=== PATIENT | female | born 1960 | race Hispanic/Latino ===

== ENCOUNTER → 2018-02-24 | Day surgery (SDC) | payer OTHER ==
[~2018-02-24] MED LIST: ASPIR 8181 MG PO; BALANCED SALT SOLN (OPTH) 15 ML BTL IO ONE; CIPRO500 MG PO; FENTANYL CITRATE/PF 100MCG/2 ML INJ ONE; FLAGYL250 MG PO; FLAGYL500 MG PO; GELATIN SPONGE 12-7MM ONE; HYDROCHLOROTHIA25 MG PO; IBUPROFEN PO; LEVAQUIN500 MG PO; LEVOTHYROXINE75 MCG PO; LIDOCAINE 2% /EPINEPHRINE 20 ML SDV INJ ONE; MIDAZOLAM HCL 2 MG/2 ML VIAL ONE; NEOMYCIN/POLYMYXIN/DEX (OPTH) 3.5 GM TUBE ONE; NORCO 5-325 TA1 EACH PO; PHENTERMINE H37.5 MG PO; POVIDONE IODINE 5% (OPTH) 30 ML BTL ONE; PROPOFOL IV EMULSION 10 MG/ML 20 ML VIAL ONE; SINGULAIR10 MG PO; SYMBICORT 16010.2 GM INH; VENTOLIN HFA18 GM IH; VENTOLIN HFA18 GM PO; ZYRTEC10 MG PO
--- OUTSIDE RECORDS SUMMARY | 2018-02-24 11:55 | XMS REPORT | Clinical Summary ---
Author Author [facility] Address Unknown Phone Unavailable Care Team Providers Care Manager Crisis Name Role Phone Asked, Pcp PCP Unavailable Allergies No Known Allergies Current Medications Prescription Sig. Disp. Refills Start End Date Status Date albuterol (ACCUNEB) 1.25 USE ONE (1) AMPULE IN 1 10/23/20 Active mg/3 mL nebulizer NEBULIZER THREE TIMES A 17 solution DAY DIRECTED. montelukast (SINGULAIR) 09/15/20 Active 10 mg tablet 17 SYMBICORT 160-4.5 10/07/20 Active mcg/actuation inhaler 17 VENTOLIN HFA 90 08/23/20 Active mcg/actuation inhaler 17 CHERATUSSIN AC 10-100 TAKE ONE (1) OR TWO (2) 0 10/23/20 Active mg/5 mL liquid TEASPOONFUL(S) BY MOUTH 17 EVERY FOUR TO SIX HOURS NEEDED. loratadine (CLARITIN) 10 Take 10 mg by mouth Active mg tablet daily. levothyroxine (SYNTHROID, Take 1 tablet (50 mcg 30 tablet 2 12/23/19 12/23/19 Active LEVOXYL) 50 mcg tablet total) by mouth every 18 19 morning. levothyroxine (SYNTHROID, 10/16/20 12/23/19 Discontin LEVOXYL) 75 mcg tablet 17 18 ued brompheniramine-pseudoeph 09/24/20 12/01/19 Discontin -DM 2-30-10 mg/5 mL syrup 17 18 ued amoxicillin-pot TAKE ONE (1) TABLET(S) BY 0 10/23/20 12/01/19 Discontin clavulanate (AUGMENTIN) MOUTH EVERY TWELVE HOURS 17 18 ued 875-125 mg per tablet FOR 10 DAYS. methylPREDNISolone See Admin Instructions. 0 10/23/20 12/01/19 Discontin (MEDROL DOSEPAK) 4 mg 17 18 ued tablet aspirin (ECOTRIN) 325 MG Take 1 tablet (325 mg 30 tablet 0 11/05/19 12/05/19 enteric coated tablet total) by mouth daily for 18 18 30 days. atorvastatin (LIPITOR) 10 Take 1 tablet (10 mg 30 tablet 0 11/04/19 12/04/19 MG tablet total) by mouth nightly 18 18 for 30 days. cetirizine (ZyrTEC) 5 MG Take 1 tablet (5 mg 30 tablet 0 11/05/19 tablet total) by mouth daily for 18 18 30 days. enoxaparin (LOVENOX) 40 Inject 0.4 mL (40 mg 12 mL 0 11/04/19 Discontin mg/0.4 mL syringe total) under the skin 18 18 ued daily for 30 days. gabapentin (NEURONTIN) Take 1 capsule (100 mg 30 capsule 0 11/04/19 12/04/19 Discontin 100 mg capsule total) by mouth nightly 18 18 ued for 30 days. lidocaine (LIDODERM) 5 % Place 1 patch on the skin 30 patch 0 12/01/19 Discontin daily for 30 days. Remove 18 18 ued & Discard patch within 12 hours or as directed by MD urbina Take 1 tablet by mouth 2 11/04/19 12/04/19 Discontin sodium (SENOKOT-S) 8.6-50 (two) times a day as 18 18 ued mg per tablet needed for constipation for up to 30 days. Active Problems Problem Noted Date CVA (cerebral vascular accident) 10/30/2017 Diplopia 10/29/2017 Encounters Date Type Specialty Care Team Description 02/04/2018 Telephone Family Faye Francis 02/03/2018 Telephone Family Faye Francis 02/02/2018 Office Visit Family Valery Paula MD Acquired hypothyroidism (Primary Dx); Preoperative examination 12/23/2017 Refill Family Hanh Miller MA 12/12/2017 Telephone Family Hanh Miller MA 12/05/2017 Orders Only Family Valery Paula MD 12/04/2017 Office Visit Family Valery Paula MD Well woman exam with routine gynecological exam (Primary Dx) 12/04/2017 Orders Only Family Medicine Valery Pickard MD 12/01/2017 Office Visit Neurology Lorena Pierre MD Fluid retention (Primary Dx); Double vision 10/28/2017 [facility] Surgery sd Rina Villalba Diplopia ( Primary Dx) - Encounter MD Leo 11/04/2017 Inder Dougherty, Jose Palomino MD 10/28/2017 Procedure Pass General Surgery after 02/23/2017 Family History Medical History Relation Name Comments Stroke Father Relation Name Status Comments Brother Alive Father Alive Maternal Grandfather Maternal Grandmother Mother Alive Paternal Grandfather Paternal Grandmother Sister Alive Social History Tobacco Use Types Packs/Day Years Used Date Never Smoker Smokeless Tobacco: Never Used Alcohol Use Drinks/Week oz/Week Comments No Sex Assigned at Date Recorded Not on file Last Filed Vital Signs Vital Sign Reading Time Taken Blood Pressure 134/83 02/02/2018 9:37 AM CDT Pulse 68 02/02/2018 9:37 AM CDT Temperature 36.4 C (97.6 F) 02/02/2018 9:37 AM CDT Respiratory Rate 18 02/02/2018 9:37 AM CDT Oxygen Saturation 100% 02/02/2018 9:37 AM CDT Inhaled Oxygen - - Concentration Weight 71.7 kg (158 lb) 02/02/2018 9:37 AM CDT Height 154.9 cm (5' 1") 02/02/2018 9:37 AM CDT Body Mass Index 29.85 02/02/2018 9:37 AM CDT Plan of Treatment Health Maintenance Due Date Last Done Comments PAP SMEAR 1980 COLONOSCOPY 2009 MAMMOGRAM 2009 SHINGRIX VACCINE (#1) 2009 INFLUENZA VACCINE 05/27/2018 06/27/2017 Procedures Procedure Name Priority Date/Time Associated Diagnosis Comments ECHOCARDIOGRAM 2D Routine 10/29/2017 Results for this COMPLETE W MMODE SPECTRAL 5:30 PM PERFORMING ARTIST procedure are in the COLOR DOPPLER (98437) results section. after 02/23/2017 Results * CBC with platelet and differential (02/02/2018 10:52 AM) Only the most recent of 3 results within the time period is included. Component Value Ref Range WBC 6.6 3.8 - 10.8 Thousand/uL RBC 4.87 3.80 - 5.10 Million/uL HGB 13.8 11.7 - 15.5 g/dL HCT 42.8 35.0 - 45.0 % MCV 87.9 80.0 - 100.0 fL MCH 28.3 27.0 - 33.0 pg MCHC 32.2 32.0 - 36.0 g/dL RDW 12.3 11.0 - 15.0 % Platelet count 361 140 - 400 Thousand/uL MPV 9.6 7.5 - 12.5 fL Neutrophils, absolute 4,356 1,500 - 7,800 cells/uL Lymphocytes, absolute 1,591 850 - 3,900 cells/uL Monocytes, absolute 462 200 - 950 cells/uL Eosinophils, absolute 119 15 - 500 cells/uL Basophils, absolute 73 0 - 200 cells/uL Neutrophils 66 % Lymphocytes 24.1 % Monocytes 7.0 % Eosinophils 1.8 % Basophils + RC 1.1 % Specimen Performing Laboratory [facility] Narrative FASTING:YES FASTING: YES * SUREPATH PAP RFX HPV mRNA E6/E7 (12/05/2017 4:03 PM) Component Value Ref Range Clinical information Comment: Information not provided Date of last menstrual NONE GIVEN period Prev. pap: NONE GIVEN Prev. bx: NONE GIVEN Source None given Statement of adequacy Comment: Satisfactory for evaluation. Endocervical/transformation zone component present. Interpretation/result: Comment: Negative for intraepithelial lesion or malignancy. Managing Principal Comment: CINTHIA STOVER (ASCP) CT screening location: [place] [address] [address] , [place] [address] NO COLLECTION DATE RECEIVED. WE HAVE USED THE DATE THE SPECIMEN WAS RECEIVED BY THIS LABORATORY THE COLLECTION DATE. IF THIS IS INCORRECT, PLEASE CONTACT CLIENT SERVICES. PHONE NUMBER: [phone] Specimen Performing Laboratory [facility] Narrative FASTING: UNKNOWN * URINALYSIS, COMPLETE, WITH REFLEX TO CULTURE (12/04/2017 2:41 PM) Component Value Ref Range Color, UA YELLOW YELLOW Appearance CLEAR CLEAR Specific gravity, urine 1.014 1.001 - 1.035 pH, urine 7.0 5.0 - 8.0 Glucose, urine NEGATIVE NEGATIVE Bilirubin, UA NEGATIVE NEGATIVE Ketones, UA NEGATIVE NEGATIVE Occult blood, urine NEGATIVE NEGATIVE Protein, UA NEGATIVE NEGATIVE Nitrite, UA NEGATIVE NEGATIVE Leukocyte esterase, UA 2+ (A) NEGATIVE WBC, UA 0-5 < OR=5 /HPF RBC, UA NONE SEEN < OR=2 /HPF Squamous epithelial 0-5 < OR=5 /HPF cells, UA Bacteria, UA NONE SEEN NONE SEEN /HPF Amorphous crystals FEW NONE OR FEW /HPF Hyaline casts, UA NONE SEEN NONE SEEN /LPF Reflex CULTURE INDICATED - RESULTS TO FOLLOW Specimen Performing Laboratory [facility] Narrative FASTING:YES FASTING: YES * Vitamin D 25 hydroxy level (12/04/2017 2:41 PM) Component Value Ref Range Vitamin D, 25-hydroxy 23 (L) 30 - 100 ng/mL Comment: Vitamin D Status 25-OH Vitamin D: Deficiency: <20 ng/mL Insufficiency: 20 - 29 ng/mL Optimal: > or=30 ng/mL For 25-OH Vitamin D testing on patients on D2-supplementation and patients for whom quantitation of D2 and D3 fractions is required, the QuestAssureD(TM) 25-OH VIT D, (D2,D3), LC/MS/MS is recommended: order code 85761 (patients >2yrs). For more information on this test, go to: http://education.SensingStrip/faq/HKU211 (This link is being provided for informational/educational purposes only.) Specimen Performing Laboratory [facility] Narrative FASTING:YES FASTING: YES * Urine culture (12/04/2017 2:41 PM) Component Value Ref Range Urine culture SEE NOTE Comment: CULTURE, URINE, ROUTINE MICRO NUMBER: [id number] TEST STATUS: FINAL SPECIMEN SOURCE: URINE SPECIMEN QUALITY: ADEQUATE RESULT: Multiple organisms present, each less than 10,000 CFU/mL. These organisms, commonly found on external and internal genitalia, are considered to be colonizers. No further testing performed. Specimen Performing Laboratory [facility] Narrative FASTING:YES FASTING: YES * C-reactive protein (12/04/2017 2:41 PM) Only the most recent of 2 results within the time period is included. Component Value Ref Range CRP 2.0 <8.0 mg/L Specimen Performing Laboratory [facility] Narrative FASTING:YES FASTING: YES * Thyroid stimulating hormone (12/04/2017 2:41 PM) Only the most recent of 2 results within the time period is included. Component Value Ref Range TSH 0.86 0.40 - 4.50 mIU/L Specimen Performing Laboratory [facility] Narrative FASTING:YES FASTING: YES * T4, free (12/04/2017 2:41 PM) Only the most recent of 2 results within the time period is included. Component Value Ref Range T4, free 1.4 0.8 - 1.8 ng/dL Specimen Performing Laboratory [facility] Narrative FASTING:YES FASTING: YES * Hemoglobin A1c (12/04/2017 2:41 PM) Component Value Ref Range Hemoglobin A1C 5.5 <5.7 % of total Hgb Comment: For the purpose of screening for the presence of diabetes: <5.7% Consistent with the absence of diabetes 5.7-6.4% Consistent with increased risk for diabetes (prediabetes) > or=6.5% Consistent with diabetes This assay result is consistent with a decreased risk of diabetes. Currently, no consensus exists regarding use of hemoglobin A1c for diagnosis of diabetes in children. According to [place] Diabetes Association (ADA) guidelines, hemoglobin A1c <7.0% represents optimal control in non- diabetic patients. Different metrics may apply to specific patient populations. Standards of Medical Care in Diabetes(ADA). Specimen Performing Laboratory [facility] Narrative FASTING:YES FASTING: YES * Vitamin B12 level (12/04/2017 2:41 PM) Only the most recent of 2 results within the time period is included. Component Value Ref Range Vitamin B12 635 200 - 1,100 pg/mL Specimen Performing Laboratory [facility] Narrative FASTING:YES FASTING: YES * Lipid panel (12/04/2017 2:41 PM) Only the most recent of 2 results within the time period is included. Component Value Ref Range Cholesterol, total 180 <200 mg/dL HDL cholesterol 116 >50 mg/dL Triglycerides 38 <150 mg/dL LDL cholesterol 53 mg/dL (calc) calculated Comment: Reference range: <100 Desirable range <100 mg/dL for patients with CHD or diabetes and <70 mg/dL for diabetic patients with known heart disease. LDL-C is now calculated using the Luis-Francois calculation, which is a validated novel method providing better accuracy than the Friedewald equation in the estimation of LDL-C. Luis SS et al. BRO. 2013;310(19): 3538-2934 (http://education.Cluey.Intacct/faq/LAZ295) Cholesterol/HDL ratio 1.6 <5.0 (calc) Non-HDL cholesterol 64 <130 mg/dL (calc) Comment: For patients with diabetes plus 1 major ASCVD risk factor, treating to a non-HDL-C goal of <100 mg/dL (LDL-C of <70 mg/dL) is considered a therapeutic option. Specimen Performing Laboratory [facility] Narrative FASTING:YES FASTING: YES * Comprehensive metabolic panel (12/04/2017 2:41 PM) Only the most recent of 2 results within the time period is included. Component Value Ref Range Glucose 86 65 - 99 mg/dL Comment: Fasting reference interval BUN, whole blood 17 7 - 25 mg/dL Creatinine 0.67 0.50 - 1.05 mg/dL Comment: For patients >49 years of age, the reference limit for Creatinine is approximately 13% higher for people identified as -Pakistani. EGFR Non-Afr. Pakistani 97 > OR=60 mL/min/1.73m2 EGFR 112 > OR=60 mL/min/1.73m2 BUN/creatinine ratio NOT APPLICABLE 6 - 22 (calc) Sodium 141 135 - 146 mmol/L Potassium 4.4 3.5 - 5.3 mmol/L Chloride 104 98 - 110 mmol/L CO2 28 20 - 31 mmol/L Calcium 9.8 8.6 - 10.4 mg/dL Protein 6.6 6.1 - 8.1 g/dL Albumin, S 4.2 3.6 - 5.1 g/dL Globulin, total 2.4 1.9 - 3.7 g/dL (calc) Albumin/globulin ratio 1.8 1.0 - 2.5 (calc) Total bilirubin 0.7 0.2 - 1.2 mg/dL Alkaline phosphatase 89 33 - 130 U/L AST 17 10 - 35 U/L ALT 16 6 - 29 U/L Specimen Performing Laboratory [facility] Narrative FASTING:YES FASTING: YES * Acetylcholine receptor binding Ab (11/02/2017 2:40 PM) Component Value Ref Range Acetylcholine receptor 0.0 0.0 - 0.4 nmol/L binding Ab Comment: INTERPRETIVE INFORMATION: Acetylcholine Binding Ab Negative ....... 0.0 - 0.4 nmol/L Positive ....... 0.5 nmol/L or greater Approximately 85-90 percent of patients with myasthenia gravis (MG) express antibodies to the acetylcholine receptor (AChR), which can be divided into binding, blocking, and modulating antibodies. Binding antibody can activate complement and lead to loss of AChR. Blocking antibody may impair binding of acetylcholine to the receptor, leading to poor muscle contraction. Modulating antibody causes receptor endocytosis resulting in loss of AChR expression, which correlates most closely with clinical severity of disease. Approximately 10-15 percent of individuals with confirmed myasthenia gravis have no measurable binding, blocking, or modulating antibodies. Test developed and characteristics determined by [employer] See Compliance Statement B: [employer] Performed by [facility] [facility], [address] [place] [address] [email or web address], Thiago Quinn MD - Lab. Director Specimen Performing Laboratory Serum [facility] [address] [place] [address] * Sedimentation rate (11/02/2017 2:40 PM) Component Value Ref Range Sedimentation rate 10 0 - 20 mm/hr Specimen Performing Laboratory Blood [facility] DEPARTMENT OF PATHOLOGY AND GENOMIC MEDICINE [address] [address] * Echocardiogram complete w contrast and 3D if needed (10/29/2017 5:30 PM) Component Value Ref Range AoV Area, Vmax 2.35 cm2 AoV Area, VTI 2.47 cm2 AoV Mean PG 5.66 mmHg AoV Peak PG 11.70 mmHg AoV Vmax 1.71 m/s AoV VTI 0.34 m IVS,d 0.74 0.6 - 1.2 cm LV,d 4.94 cm LV EF,A2C 59.63 % LV EF,A4C 63.14 % LV EF,BP 61.08 % Michi Lester,d A2C 7.15 cm Michi Lester,d A4C 7.91 cm Michi Lester,s A2C 6.15 cm Michi Lester,s A4C 5.41 cm LV,s 3.33 cm LV SV,A2C 40.88 % LV SV,A4C 32.77 % LV Vol,d A2C 68.56 mL LV Vol,d A4C 51.90 ml LV Vol,d BP 62.64 ml LV Vol,s A2C 27.68 mL LV Vol,s A4C 19.13 ml LV Vol,s BP 24.38 nl LVOT Diam,S 2.01 cm LVOT Vmax 1.27 m/s LVOT VTI 0.26 m LVPWD,d 0.79 cm RVSP (TR) 33.80 mmHg TR Vpeak 2.68 mm/s AR Press Half Time 608.71 ms MV E A ratio 0.64 mmHg TR pk grad 28.80 mmHg E wave decelartion time 232.27 msec MV Peak A Wes 0.86 m/s MV valve area p 1/2 4.12 cm2 method MV Peak E Wes 0.55 m/s MV stenosis pressure 1/2 53.37 ms time AV LVOT peak gradient 6.43 mmHg RVSP 33.80 mmHg LV SYS VOL 45.18 ml LV PISANO VOL 114.95 ml LV SV Teich 2D 69.77 ml LVOT SI 48.05 ml/m2 AoV Cusp sep 1.88 AoV Vmn 1.12 IVS s 2D 0.89 AR slope 1.83 Ar Vmax 3.78 LA Ao Ratio Mmode 1.33 LVOT Vmn 0.81 Pt Size 157.48 Pt Wt 71.21 PV AT 76.12 msec LVOT mean grad 2.93 mmHg AR DT 2,070.51 msec AR pk grad 55.38 mmHg LVPW s PLAX 1.08 cm MV Decel slope 2.35 m/s2 LA Vol MOD A4C 26.77 ml Velocity Ratio (V1/V2) 0.74 m/s EF 60.70 % E/A ratio 0.64 LVOT area 3.17 cm2 RA pressure 5.00 mmHg LA diam s 3.70 cm Aortic Root 2.80 AR maxPG 56.25 D E excurs 1.50 E f slope 0.06 E prime lat 0.13 E rina sept 0.13 PV acc T slope 12.20 Specimen Performing Laboratory [facility] [address] [place] [address] Narrative The left ventricle chamber size is normal. Left Ventricular ejection fraction is 55 - 60%. Right ventricular size is normal. Left atrium size is mildly dilated. No pericardial effusion Spectral Doppler shows impaired relaxation pattern of left ventricular diastolic filling. Normal pulmonary artery systolic pressure.RA pressure is normal * FLORESITA (10/29/2017 12:15 PM) Component Value Ref Range FLORESITA screen <1:80 <1:80 Specimen Performing Laboratory Blood [facility] DEPARTMENT OF PATHOLOGY AND GENOMIC MEDICINE [address] [place] [address] * T4 (10/29/2017 12:15 PM) Component Value Ref Range T4 7.8 4.5 - 11.7 ug/dL Specimen Performing Laboratory Plasma specimen [facility] DEPARTMENT OF PATHOLOGY AND GENOMIC MEDICINE [address] [place] [address] * Folate level (10/29/2017 12:15 PM) Component Value Ref Range Folate 15.4 4.6 - 34.8 ng/mL Specimen Performing Laboratory Serum [facility] DEPARTMENT OF PATHOLOGY AND GENOMIC MEDICINE [address] [place] [address] * Pv carotid duplex (10/29/2017 10:55 AM) Component Value Ref Range L CCA Prox 17.6 cm/s L CCA Prox 84.9 cm/s L ECA Prox 13.0 cm/s L ECA Prox 103.7 cm/s R ECA Prox 9.0 cm/s L ICA Prox 18.9 cm/s L ICA Prox 121.4 cm/s R ICA Prox 16.2 cm/s R ICA Prox 73.3 cm/s L ICA/CCA Ratio 1.2 R ICA/CCA Ratio 0.8 L CCA Max 97.80 cm/s R CCA Max 96.00 cm/s L ICA Max 121.40 cm/s R ICA Max 73.30 cm/s R CCA Prox 16.4 cm/s R CCA Prox 96 cm/s R ICA Dist 15.4 cm/s L ICA Dist 32.7 cm/s L ICA DIST 105.7 cm/s R CCA Dist 19 cm/s R CCA Dist 88.2 cm/s R Vert Art 12.30 cm/s L CCA Dist 24.1 cm/s L CCA Dist 97.8 cm/s R ECA Prox 88.20 cm/s R ICA Dist 56.8 cm/s L Vert Art 8.50 cm/s L Vert Art 43.5 cm/s R Vert Art 49.40 cm/s Specimen Performing Laboratory [facility] [address] [place] [address] Narrative Bilateral carotid arteries were patent without stenosis. * ECG ED Preliminary Interpretation - NOT AN ORDER (10/29/2017 8:15 AM) Narrative Rina Rodriguez MD 10/29/20178:15 AM ECG ED Preliminary Interpretation - Not an Order Performed by: RINA RODRIGUEZ Authorized by: RINA RODRIGUEZ ECG reviewed by ED Physician in the absence of a it program engagement director: yes Interpretation: Interpretation: normal Rate: ECG rate:75 ECG rate assessment: normal Rhythm: Rhythm: sinus rhythm Ectopy: Ectopy: none QRS: QRS axis:Normal Conduction: Conduction: normal ST segments: ST segments:Normal T waves: T waves: normal * Troponin (10/29/2017 1:40 AM) Only the most recent of 2 results within the time period is included. Component Value Ref Range Troponin <0.300 0.000 - 0.300 ng/mL Comment: 0.30 - 1.49 ng/ml May indicate increased risk of acute coronary syndrome. >=1.5 ng/ml Consistent with acute myocardial infarction. The diagnostic value of a single normal or non-diagnostic result is questionable. Serial samples at 2-6 hour intervals are required to rule out acute myocardial injury. Specimen Performing Laboratory Plasma specimen [facility] DEPARTMENT OF PATHOLOGY AND GENOMIC MEDICINE [address] [place] [address] * MRI Brain & Orbit W Wo Contrast (10/28/2017 11:35 PM) Specimen Performing Laboratory [facility] [address] [place] [address] Narrative EXAMINATION: MRI BRAIN & ORBIT W WO CONTRAST CLINICAL HISTORY: DIPLOPIA COMPARISON:Head CT 10/28/2017. TECHNIQUE: Multiplanar and multisequence MRI imaging of the brain was obtained with and without contrast. FINDINGS: Brain MRI There is a punctate focus of restricted diffusion (DWI hyperintense, subtle hypointensity on ADC, and definite T2 FLAIR hyperintensity) which is centered in the left periaqueductal garcia in the midbrain. The lesion could account for outpatient symptoms. Otherwise, no acute abnormality. No territorial ischemic insult. No intracranial hemorrhage or mass occupying lesion. No areas of suspicious enhancement. Age appropriate parenchymal volume loss. Scattered T2 FLAIR hyperintensities in the supratentorial white matter likely chronic small vessel ischemic change. Partially opacified maxillary sinuses. Orbital MRI: Bilateral bony orbits and intraorbital contents are normal. The optic nerves are normal in appearance. The sheaths are normal. No evidence of inflammatory process. The pituitary gland, cavernous sinuses, visible portions of the intracranial optic pathways, and flow voids are normal. IMPRESSION: Subtle signal abnormalities in the left periaqueductal garcia as detailed above, likely representing an acute ischemic insults in light of the patient's symptoms. Findings were discussed with Dr. Villalba at 11:50 PM on 10/28/2017 [facility]-[id number] Procedure Note Interface, Radiology Results Incoming - 10/28/2017 11:53 PM PERFORMING ARTIST EXAMINATION: MRI BRAIN & ORBIT W WO CONTRAST CLINICAL HISTORY: DIPLOPIA COMPARISON: Head CT 10/28/2017. TECHNIQUE: Multiplanar and multisequence MRI imaging of the brain was obtained with and without contrast. FINDINGS: Brain MRI There is a punctate focus of restricted diffusion (DWI hyperintense, subtle hypointensity on ADC, and definite T2 FLAIR hyperintensity) which is centered in the left periaqueductal garcia in the midbrain. The lesion could account for outpatient symptoms. Otherwise, no acute abnormality. No territorial ischemic insult. No intracranial hemorrhage or mass occupying lesion. No areas of suspicious enhancement. Age appropriate parenchymal volume loss. Scattered T2 FLAIR hyperintensities in the supratentorial white matter likely chronic small vessel ischemic change. Partially opacified maxillary sinuses. Orbital MRI: Bilateral bony orbits and intraorbital contents are normal. The optic nerves are normal in appearance. The sheaths are normal. No evidence of inflammatory process. The pituitary gland, cavernous sinuses, visible portions of the intracranial optic pathways, and flow voids are normal. IMPRESSION: Subtle signal abnormalities in the left periaqueductal garcia as detailed above, likely representing an acute ischemic insults in light of the patient's symptoms. Findings were discussed with Dr. Villalba at 11:50 PM on 10/28/2017 [facility]-[id number] * CTA Head W Wo Contrast (10/28/2017 10:27 PM) Specimen Performing Laboratory [address] [address] Narrative EXAMINATION: CT ANGIOGRAM HEAD W WO CONTRAST CLINICAL HISTORY: diplopia COMPARISON:None TECHNIQUE:Imaging of the intracranial circulation was obtained from the skull base to the vertex during the arterial phase of enhancement. Postprocessing was performed with MIP multiplanar and 3D reconstructed images. CT scans are performed using radiation dose reduction techniques. Technical factors are evaluated and adjusted to ensure appropriate moderation of exposure. Automated dose management technology is applied to adjust radiation exposure while achieving a diagnostic quality image. FINDINGS: No hemodynamically significant stenosis is identified of the intracranial internal carotid arteries, middle cerebral arteries, anterior cerebral arteries , intracranial vertebral arteries, basilar artery or posterior cerebral arteries. There is no aneurysmal dilatation or vascular malformation of the [place]. The major dural sinuses are opacified normally. There are no gross brain parenchymal abnormalities. There is no midline shift, hydrocephalus or extra-axial fluid collection. Soft tissue shows no evidence of laceration or hematoma. There is no air-fluid level in the sinuses. Osseous calvarium is intact. IMPRESSION: No hemodynamically significant narrowing of the [place] vessels. [facility]-[id number] Procedure Note Interface, Radiology Results Incoming - 10/28/2017 10:40 PM PERFORMING ARTIST EXAMINATION: CT ANGIOGRAM HEAD W WO CONTRAST CLINICAL HISTORY: diplopia COMPARISON: None TECHNIQUE: Imaging of the intracranial circulation was obtained from the skull base to the vertex during the arterial phase of enhancement. Postprocessing was performed with MIP multiplanar and 3D reconstructed images. CT scans are performed using radiation dose reduction techniques. Technical factors are evaluated and adjusted to ensure appropriate moderation of exposure. Automated dose management technology is applied to adjust radiation exposure while achieving a diagnostic quality image. FINDINGS: No hemodynamically significant stenosis is identified of the intracranial internal carotid arteries, middle cerebral arteries, anterior cerebral arteries , intracranial vertebral arteries, basilar artery or posterior cerebral arteries. There is no aneurysmal dilatation or vascular malformation of the [place]. The major dural sinuses are opacified normally. There are no gross brain parenchymal abnormalities. There is no midline shift, hydrocephalus or extra-axial fluid collection. Soft tissue shows no evidence of laceration or hematoma. There is no air-fluid level in the sinuses. Osseous calvarium is intact. IMPRESSION: No hemodynamically significant narrowing of the [place] vessels. [facility]-[id number] * CT Stroke Brain Wo Contrast (10/28/2017 9:55 PM) Specimen Performing Laboratory [facility] [address] [place] [address] Narrative EXAMINATION: CT STROKE BRAIN WO CONTRAST CLINICAL HISTORY: DIPLOPIA, diplopialower visual field deficit bilaterally COMPARISON:None. TECHNIQUE: Noncontrast enhanced images of the brain were obtained from the skull base to the vertex. Both soft tissue and bone reconstruction algorithms were performed. CT scans are performed using radiation dose reduction techniques (iterative reconstruction and/or automated exposure control). Technical factors are evaluated and adjusted to ensure appropriate moderation of exposure. Automated dose management technology is applied to adjust radiation exposure while achieving a diagnostic quality image. FINDINGS: The brain parenchyma is unremarkable. The garcia-white matter differentiation is preserved. No evidence of acute intra or extra-axial hemorrhage, mass, mass effect or acute territorial infarction. There is no acute hydrocephalus. Basal cisterns are patent. No acute soft tissue hematoma or laceration. No skull fractures or aggressive bony lesions. Nonspecific inflammatory changes in the paranasal sinuses. Orbits are normal. IMPRESSION: No acute intracranial abnormality identified. Findings discussed with RINA RODRIGUEZ at 10/28/2017 9:57 PM, with acknowledgement of understanding. [facility]-[id number] Procedure Note [facility], Radiology Results Incoming - 10/28/2017 10:06 PM PERFORMING ARTIST EXAMINATION: CT STROKE BRAIN WO CONTRAST CLINICAL HISTORY: DIPLOPIA, diplopia lower visual field deficit bilaterally COMPARISON: None. TECHNIQUE: Noncontrast enhanced images of the brain were obtained from the skull base to the vertex. Both soft tissue and bone reconstruction algorithms were performed. CT scans are performed using radiation dose reduction techniques (iterative reconstruction and/or automated exposure control). Technical factors are evaluated and adjusted to ensure appropriate moderation of exposure. Automated dose management technology is applied to adjust radiation exposure while achieving a diagnostic quality image. FINDINGS: The brain parenchyma is unremarkable. The garcia-white matter differentiation is preserved. No evidence of acute intra or extra-axial hemorrhage, mass, mass effect or acute territorial infarction. There is no acute hydrocephalus. Basal cisterns are patent. No acute soft tissue hematoma or laceration. No skull fractures or aggressive bony lesions. Nonspecific inflammatory changes in the paranasal sinuses. Orbits are normal. IMPRESSION: No acute intracranial abnormality identified. Findings discussed with RINA RODRIGUEZ at 10/28/2017 9:57 PM, with acknowledgement of understanding. [facility]-[id number] * Smear review (10/28/2017 9:19 PM) Component Value Ref Range Platelet slide review Gerry adequate Specimen Performing Laboratory [facility] DEPARTMENT OF PATHOLOGY AND GENOMIC MEDICINE [address] [place] [address] * Estimated GFR (10/28/2017 9:19 PM) Component Value Ref Range GFR Non Af Amer >90 mL/min/1.73 m2 GFR Af Amer >90 mL/min/1.73 m2 Comment: Chronic kidney disease: <60 mL/min/1.73m2 Kidney failure: <15 mL/min/1.73m2 The estimated GFR is calculated from the IDMS-traceable Modification of Diet in Renal Disease Equation. The accuracy of the calculation is poor when the creatinine is normal. Calculated values >90 mL/min/1.73m2 are not reported. This equation has not been validated in children (<18 years), women, the elderly (>70 years), or ethnic groups other than Caucasians and Americans. Specimen Performing Laboratory Plasma specimen [facility] DEPARTMENT OF PATHOLOGY AND GENOMIC MEDICINE [address] [place] [address] * Creatine kinase, total (CPK) (10/28/2017 9:19 PM) Component Value Ref Range Creatine kinase 91 26 - 192 U/L Specimen Performing Laboratory Plasma specimen [facility] DEPARTMENT OF PATHOLOGY AND GENOMIC MEDICINE [address] [place] [address] * XR Chest 1 Vw Portable (10/28/2017 9:10 PM) Specimen Performing Laboratory [facility] [address] [place] [address] Narrative EXAMINATION: XR CHEST 1 VW PORTABLE CLINICAL HISTORY: Chest Pain, Chest pain COMPARISON:None. IMPRESSION: The lungs are clear. No pleural effusion or pneumothorax. The cardiomediastinal silhouette is normal. No acute osseous abnormalities. [facility]-[id number] Procedure Note Interface, Radiology Results Incoming - 10/28/2017 9:14 PM PERFORMING ARTIST EXAMINATION: XR CHEST 1 VW PORTABLE CLINICAL HISTORY: Chest Pain, Chest pain COMPARISON: None. IMPRESSION: The lungs are clear. No pleural effusion or pneumothorax. The cardiomediastinal silhouette is normal. No acute osseous abnormalities. [facility]-[id number] * ECG 12 lead (10/28/2017 8:55 PM) Component Value Ref Range Ventricular rate 75 Atrial rate 75 AK interval 180 QRSD interval 88 QT interval 414 QTC interval 462 P axis 1 50 QRS axis 1 10 T wave axis 57 EKG impression Normal sinus rhythm-Possible Left atrial enlargement-Borderline ECG-No previous ECGs available- Specimen Performing Laboratory [facility] [address] [place] [address] after 02/23/2017 Insurance Payer Benefit Subscriber ID Type Phone Address Plan / Group AETNA AETNA PPO xxxxxxxxxx [place] [address]
== END | disposition home or self-care (01) ==
LOC: OR 11:53
PROVIDERS: ATTEND Ophthalmology
DX: H02.834 Dermatochalasis of left upper eyelid (principal); H02.831 Dermatochalasis of right upper eyelid; E03.9 Hypothyroidism, unspecified; J45.20 Mild intermittent asthma, uncomplicated; K21.9 Gastro-esophageal reflux disease without esophagitis; K58.9 Irritable bowel syndrome, unspecified; K57.90 Diverticulosis of intestine, part unspecified, without perforation or abscess without bleeding; Z86.718 Personal history of other venous thrombosis and embolism; Z86.73 Personal history of transient ischemic attack (TIA), and cerebral infarction without residual deficits; Z79.82 Long term (current) use of aspirin
CPT/HCPCS: 15823; J2001; J2250

== ENCOUNTER 2020-02-12 11:02 | Emergency (ER) | payer OTHER ==
[~2020-02-12] VITALS: Ht 162.6 cm; Wt 71.2 kg
[~2020-02-12 11:02] MED LIST changes: -BALANCED SALT SOLN (OPTH) 15 ML BTL IO ONE; -FENTANYL CITRATE/PF 100MCG/2 ML INJ ONE; -GELATIN SPONGE 12-7MM ONE; -LIDOCAINE 2% /EPINEPHRINE 20 ML SDV INJ ONE; -MIDAZOLAM HCL 2 MG/2 ML VIAL ONE; -NEOMYCIN/POLYMYXIN/DEX (OPTH) 3.5 GM TUBE ONE; -POVIDONE IODINE 5% (OPTH) 30 ML BTL ONE; -PROPOFOL IV EMULSION 10 MG/ML 20 ML VIAL ONE
--- OUTSIDE RECORDS SUMMARY | 2020-02-12 11:05 | XMS REPORT ---
Author Author [facility] Address Unknown Phone Unavailable Care Team Providers Care Route Service Representative Name Role Phone Unavailable Unavailable Problems This patient has no known problems. Allergies, Adverse Reactions, Alerts This patient has no known allergies or adverse reactions. Medications This patient has no known medications.
--- OUTSIDE RECORDS SUMMARY | 2020-02-12 11:06 | XMS REPORT | Summary of Care ---
Author Author [facility] - Health Organization [facility] - Health Address Unknown Phone Unavailable Care Team Providers Care Leadership Program Associate Name Role Phone Messi Rodriguez PCP Encounter Details Care Team Description Date Type Department Doctor Unassigned, [place] [address] [place] [address] 07/14/2019 Orders Only [address] [address] Allergies No Known Allergiesdocumented as of this encounter (statuses as of 07/14/2019) Medications End Date Status Medication Sig Dispensed Refills Start Date Active budesonide-formoterol Inhale 2 0 (SYMBICORT) 160-4.5 Puffs. 8 mcg/actuation inhaler Active albuterol (VENTOLIN HFA) Inhale 2 0 90 mcg/actuation inhaler Puffs. 8 Active montelukast 10 mg tablet Take 10 mg by 0 mouth. 8 Active loratadine 10 mg tablet Take 10 mg by 0 mouth. Active hydroCHLOROthiazide 12.5 Take 12.5 mg 0 mg capsule by mouth 8 daily. Active phentermine 37.5 mg Take 37.5 mg 0 tablet by mouth 8 daily. Active FLORASTOR 250 mg capsule TAKE 1 0 CAPSULE (250 8 MG TOTAL) BY MOUTH 2 (TWO) TIMES A DAY FOR 30 DAYS. Active levothyroxine 50 mcg Take 50 mcg 0 tablet by mouth. 9 Active tobramycin-dexamethasone Place 1 Drop 2.5 mL 1 (TOBRADEX) 0.3-0.1 % in both eyes 9 ophthalmic suspension 4 (four) dropsIndications: Ptosis times daily. of both eyelids 07/20/2019 Active acetaminophen 500 mg Take 2 84 tablet 0 tabletIndications: Ptosis tablets by 9 of both eyelids mouth every 8 (eight) hours for 14 days. 07/20/2019 Active celecoxib (CELEBREX) 200 Take 1 28 capsule 0 mg capsuleIndications: capsule by 9 Ptosis of both eyelids mouth 2 (two) times daily with meals for 14 days. documented as of this encounter (statuses as of 07/14/2019) Active Problems Problem Noted Date Vision impairment 06/23/2018 Overview: Added automatically from request for surgery [id number] Brow ptosis 06/23/2018 Overview: Added automatically from request for surgery [id number] Blepharochalasis, unspecified laterality 06/23/2018 Overview: Added automatically from request for surgery [id number] documented as of this encounter (statuses as of 07/14/2019) Social History Date Tobacco Use Types Packs/Day Years Used Never Smoker Smokeless Tobacco: Never Used Sex Assigned at Date Recorded Not on file Industry Job Start Date Occupation Not on file Not on file Not on file Travel End Travel History Travel Start No recent travel history available. documented as of this encounter Last Filed Vital Signs Not on filedocumented in this encounter Plan of Treatment Health Maintenance Due Date Last Done Comments HEPATITIS C (HCV) SCREEN 1959 DTaP,Tdap,and Td Vaccines 1978 (1 - Tdap) PAP SMEAR 1980 MAMMOGRAM 1999 COLONOSCOPY 2009 Zoster Recombinant 2009 Vaccine (SHINGRIX) (1 of 2) INFLUENZA VACCINE (#1) 2019 PNEUMOCOCCAL 0-64 YEARS Aged Out No longer eligible based COMBINED SERIES on patient's age to complete this topic documented as of this encounter Procedures Comments Procedure Name Priority Date/Time Associated Diagnosis ASSIGNMENT OF BENEFITS Routine 07/14/2019 7:03 AM CDT documented in this encounter Results Not on filedocumented in this encounter Insurance Type Payer Benefit Subscriber ID Effective Phone Address Plan / Dates Group HMO AETNA AETNA HMO [id number] 2016- Present documented as of this encounter
--- OUTSIDE RECORDS SUMMARY | 2020-02-12 11:06 | XMS REPORT | Summary of Care ---
Author Author [facility] - Health Organization [facility] - Health Address Unknown Phone Unavailable Care Team Providers Care Mold Washer Name Role Phone Messi Rodriguez PCP Reason for Visit * Reason Comments Other Checking Status of Ins Encounter Details Care Team Description Date Type Department Dasha Ha MD [address] [facility] [address] [place] [address] Other (Checking Status of Ins) 06/01/2019 Telephone [facility] Plastic Surgery[address] [place] [address] Allergies No Known Allergiesdocumented as of this encounter (statuses as of 06/02/2019) Medications End Date Status Medication Sig Dispensed [...] TIMES A DAY FOR 30 DAYS. Active ACETAMINOPHEN, BULK, MISC 0 documented as of this encounter (statuses as of 06/02/2019) Active Problems Problem Noted Date Vision impairment 06/23/2018 Overview: Added automatically from request for surgery [id number] Brow ptosis 06/23/2018 Overview: Added automatically from request for surgery [id number] Blepharochalasis, unspecified laterality 06/23/2018 Overview: Added automatically from request for surgery [id number] documented as of this encounter (statuses as of 06/02/2019) Social History Date Tobacco Use Types Packs/Day [...] filedocumented in this encounter Plan of Treatment Care Team Description Date Type Specialty Dasha Ha MD [address] [facility] [address] [place], [place] [id number] 06/08/2019 Office Visit Plastic Surgery Health Maintenance Due Date Last Done Comments HEPATITIS C (HCV) SCREEN 1959 DTaP,Tdap,and Td Vaccines 1978 (1 - Tdap) PAP SMEAR 1980 MAMMOGRAM 1999 COLONOSCOPY 2009 Zoster Recombinant 2009 Vaccine (SHINGRIX) (1 of 2) INFLUENZA VACCINE 06/27/2019 PNEUMOCOCCAL 0-64 YEARS Aged Out No longer eligible based COMBINED SERIES on patient's age to complete this topic documented as of this encounter Results Not on filedocumented in this encounter Insurance Type Payer Benefit Subscriber ID Effective Phone Address Plan / Dates Group HMO AETNA AETNA HMO [id number] 2016- Present documented as of this encounter
--- OUTSIDE RECORDS SUMMARY | 2020-02-12 11:06 | XMS REPORT | Summary of Care ---
Author Author [facility] - Health Organization [facility] - Health Address Unknown Phone Unavailable Care Team Providers Care Marine Equipment Engineer Name Role Phone Messi Rodriguez PCP Reason for Visit * Reason Comments Follow-up pre op * (Routine) Referred By Contact Referred To Contact Status Reason Specialty Diagnoses / Procedures Dasha Ha MD [address] [place] [address] Dasha Ha MD [address] [place] [address] Closed [facility] AND Diagnoses RECONSTRUCTIVE re-evaluate upper SURGERY / blephs Plastic Surgery P rocedures CONSULT/REFERRAL PLASTIC SURGERY FOLLOW-UP VISIT Encounter Details Care Team Description Date Type Department Dasha Ha MD [address] [address] Ptosis of both eyelids (Primary Dx) 07/06/2019 Office Visit [facility] Health Plastic Surgery- [address] [place] [phone] Allergies No Known Allergiesdocumented as of this encounter (statuses as of 07/06/2019) Medications End Date Status Medication Sig Dispensed [...] times daily with meals for 14 days. 07/06/2019 Discontinued ACETAMINOPHEN, BULK, MISC 0 documented as of this encounter (statuses as of 07/06/2019) Active Problems Problem Noted Date Vision impairment 06/23/2018 Overview: Added automatically from request for surgery [id number] Brow ptosis 06/23/2018 Overview: Added automatically from request for surgery [id number] Blepharochalasis, unspecified laterality 06/23/2018 Overview: Added automatically from request for surgery [id number] documented as of this encounter (statuses as of 07/06/2019) Social History Date Tobacco Use Types Packs/Day Years Used Never Smoker Smokeless Tobacco: Never Used Sex Assigned at Date Recorded Not on file Industry Job Start Date Occupation Not on file Not on file Not on file Travel End Travel History Travel Start No recent travel history available. documented as of this encounter Last Filed Vital Signs Reading Time Taken Comments Vital Sign 118/65 07/06/2019 1:22 PM CDT Blood Pressure 67 07/06/2019 1:22 PM CDT Pulse 36.7 C (98 F) 07/06/2019 1:22 PM CDT Temperature 18 07/06/2019 1:22 PM CDT Respiratory Rate 96% 07/06/2019 1:22 PM CDT Oxygen Saturation - - Inhaled Oxygen Concentration 70.7 kg (155 lb 12.8 oz) 07/06/2019 1:22 PM CDT Weight 154.9 cm (5' 1") 07/06/2019 1:22 PM CDT Height 29.44 07/06/2019 1:22 PM CDT Body Mass Index documented in this encounter Progress Notes * Shawanda De Souza RN - 07/06/2019 1:15 PM CDT Consent for revision of blepharoplasty, bilateral witnessed by Meche De Souza RN. Surgery scheduled @ [facility] on 07/14/19. Verbal and printed instructions g iven. List of medications to avoid prior to procedure explained. Verbalized unde rstanding. Facility location and telephone provided. Both done with leave specialist [email or web address] # [id number] * Aldo Young MD - 07/06/2019 1:15 PM CDT PLASTIC SURGERY CLINIC NOTE NAME: Palma Freeman Date of Service: 07/06/2019 13:36 CC: Pre-operative appointment for revision of upper blepharoplasty and browlift. SUBJECT: Palma Freeman is a 58 year old female s/p coronal brow lift and bilateral upper blepharoplasty who presents for evaluation of revision surgery. We last evalua branden the patient on 01/05/2019 where pre-determination was submitted. After corre spondence, it was determined that the patient would require visual field testing documenting visual field deficits prior to obtaining approval for the surgery. She attempted to obtain visual field testing from two separate ophthalmologists, but reports they would not offer the test unless they would be the surgeon per forming the revision surgery. She returns to [facility] today for repeat evaluation. Interval history 07/06/2019: The patient has obtained insurance approval for exc ision of excess eyelid skin and complex closure. The patient denies changes in her medical history since her last appointment. Her case has been previously po sted for 07/14/2019. CURRENT HOSPITAL MEDICATIONS Current Outpatient Medications on File Prior to Visit Medication Sig Dispense Refill levothyroxine 50 mcg tablet Take 50 mcg by mouth. ACETAMINOPHEN, BULK, MISC albuterol (VENTOLIN HFA) 90 mcg/actuation inhaler Inhale 2 Puffs. budesonide-formoterol (SYMBICORT) 160-4.5 mcg/actuation inhaler Inhale 2 Puf fs. FLORASTOR 250 mg capsule TAKE 1 CAPSULE (250 MG TOTAL) BY MOUTH 2 (TWO) TIME S A DAY FOR 30 DAYS. 0 hydroCHLOROthiazide 12.5 mg capsule Take 12.5 mg by mouth daily. 0 loratadine 10 mg tablet Take 10 mg by mouth. montelukast 10 mg tablet Take 10 mg by mouth. phentermine 37.5 mg tablet Take 37.5 mg by mouth daily. 0 No current facility-administered medications on file prior to visit. HISTORY Past Surgical History: Procedure Laterality Date BLEPHAROPLASTY Bilateral 07/01/2018 Surgeon: Dasha Ha MD; Location: [facility] OR [facility] BROWLIFT Bilateral 07/01/2018 Surgeon: Dasha Ha MD; Location: [facility] All other past surgical history non contributory to this encounter. No past medical history on file. All other past medical history non contributory to this encounter. No family history on file. All other family history non contributory to this enc ounter. Social History Socioeconomic History Marital status: Spouse name: Not on file Number of children: Not on file Years of education: Not on file Highest education level: Not on file Occupational History Not on file Social Needs Financial resource strain: Not on file Food insecurity: Worry: Not on file Inability: Not on file Transportation needs: Medical: Not on file Non-medical: Not on file Tobacco Use Smoking status: Never Smoker Smokeless tobacco: Never Used Substance and Sexual Activity Alcohol use: Not on file Drug use: Not on file Sexual activity: Not on file Lifestyle Physical activity: Days per week: Not on file Minutes per session: Not on file Stress: Not on file Relationships Social connections: Talks on phone: Not on file Gets together: Not on file Attends taoism service: Not on file Active member of club or organization: Not on file Attends meetings of clubs or organizations: Not on file Relationship status: Not on file Intimate partner violence: Fear of current or ex partner: Not on file Emotionally abused: Not on file Physically abused: Not on file Forced sexual activity: Not on file Other Topics Concern Not on file Social History Narrative Not on file All other social history non contributory to this encounter. REVIEW OF SYSTEMS Constitutional: Denies fever and chills. HEENT: Per HPI. Cardiac: Denies chest pain and palpitations. Pulmonary: Denies dyspnea and cough. Gastrointestinal: Denies abdominal pain, constipation, and diarrhea. Genitourinary: Denies dysuria. Endocrine: Denies diabetes. Musculoskeletal: Denies problems with muscles and joints. Neuro: Denies numbness and tingling. Psych: Denies anxiety and depression. Skin: Denies rashes and pigmented lesions. Allergies: No Known Allergies PHYSICAL EXAM BP 118/65 | Pulse 67 | Temp 36.7 C (98 F) | Resp 18 | Ht 5' 1" (1.549 m) | Wt 155 lb 12.8 oz (70.7 kg) | SpO2 96% | BMI 29.44 kg/m General: Alert and oriented, in no acute distress. HEENT: Bilateral upper blepharoplasty scars are well-healed and soft to touch. Fullness and ptosis present in the lateral aspect of the bilateral superolateral orbit, R > L. Cardiac: Regular rate and rhythm. Pulmonary: Breathing comfortably on room air. Abdomen: Soft, non-distended. Musculoskeletal: Full range of motion of all extremities. Neuro: No focal deficits. Psych: Appropriate mood and affect. Skin: No rashes or pigmented lesions. LABORATORY/MICROBIOLOGY/PATHOLOGY No new laboratory studies. RADIOLOGY No new imaging studies. ASSESSMENT/PLAN Palma Freeman is a 58 year old female s/p bilateral upper blepharoplasty and co eduardo browlift on 07/01/2018 who has persistent asymmetry. We will plan for mima ion of her prior blepharoplasty by excising excess skin and extending her prior incision laterally. After discussion of the risks and benefits of surgery, the patient provided written consent with aid of an official political geographer. Informed consent discussed with the patient, including: condition, proposed care , treatments and services, alternative forms of treatment, and risks of no treat ment. Details discussed around the procedures to be used, and the risks and haz ards involved, potential benefits, and side effects of the patients proposed care, treatment, and services; the likelihood of the patient achieving his or he r goals; and any potential problems that might occur during recuperation. Reasonable alternative also discussed with the patients proposed care, treatm ent, and services. The discussion encompasses risks, benefits, and side effects related to the alternative and risks related to not receiving the proposed care, treatment, and services. -Case scheduled for 07/14/2019 -Pre-operative medications ERX to pharmacy (Tobradex drops, Celebrex 200 mg BID, Tylenol 1000 mg Q8H). -Consent signed and in chart Updated photos by Hector. Aldo Young MD 07/06/2019 6:54 PM * Yara Mathews MA - 07/06/2019 1:15 PM CDT Palma Freeman is a 58 year old female follow up in for pre op she is alert and ambulatory documented in this encounter Plan of Treatment Care Team Description Date Type Specialty Dasha Ha MD [address] [place], [place] [address] [place], [place] [id number] Blepharochalasis, unspecified laterality 07/14/2019 Hospital Ambulatory Surgical Encounter Health Maintenance Due Date Last Done Comments [...] Results Not on filedocumented in this encounter Visit Diagnoses Diagnosis Ptosis of both eyelids - Primary Unspecified ptosis of eyelid documented in this encounter Insurance Type Payer Benefit Subscriber ID Effective Phone Address Plan / Dates Group [id number] 2016- Present documented as of this encounter
--- OUTSIDE RECORDS SUMMARY | 2020-02-12 11:06 | XMS REPORT | Summary of Care ---
Author Author [facility] - Health Organization [facility] - Health Address Unknown Phone Unavailable Care Team Providers Care Cherry Pitter Name Role Phone Messi Rodriguez PCP Reason for Visit * Reason Comments Appointment Encounter Details Care Team Description Date Type Department Dasha Ha MD [address] [place], [place] [address]D [address] [place] [address] Appointment 07/03/2019 Telephone [facility] Plastic Surgery[address] [place] [address] Allergies No Known Allergiesdocumented as of this encounter (statuses as of 07/05/2019) Medications End Date Status Medication Sig Dispensed [...] 30 DAYS. Active ACETAMINOPHEN, BULK, MISC 0 Active levothyroxine 50 mcg Take 50 mcg 0 tablet by mouth. 9 documented as of this encounter (statuses as of 07/05/2019) Active Problems Problem Noted Date Vision impairment 06/23/2018 Overview: Added automatically from request for surgery [id number] Brow ptosis 06/23/2018 Overview: Added automatically from request for surgery [id number] Blepharochalasis, unspecified laterality 06/23/2018 Overview: Added automatically from request for surgery [id number] documented as of this encounter (statuses as of 07/05/2019) Social History Date Tobacco Use Types Packs/Day [...] Description Date Type Specialty Dasha Ha MD [address] [place] [address] [address] [place] [address] 07/06/2019 Office Visit Plastic Surgery Health Maintenance Due [...] / Dates Group HMO AETNA AETNA HMO [id number] 2016- Present documented as of this encounter
--- OUTSIDE RECORDS SUMMARY | 2020-02-12 11:06 | XMS REPORT | Summary of Care ---
Author Author [facility] - Health Organization [facility] - Health Address Unknown Phone Unavailable Care Team Providers Care Range Aid Name Role Phone Messi Rodriguez PCP Encounter Details Care Team Description Date Type Department Dasha Ha MD [address] [place] [address] [address] [place] [address] [phone] Blepharochalasis, unspecified laterality (Primary Dx); Brow ptosis 07/06/2019 Prep For [facility] [address] [place] [phone] Allergies No Known Allergiesdocumented as of this [...] Overview: Added automatically from request for surgery [id number] Brow ptosis 06/23/2018 Overview: Added automatically from request for surgery [id number] Blepharochalasis, unspecified laterality 06/23/2018 Overview: Added automatically from request for surgery [id number] documented as of this encounter (statuses as [...] Date Type Specialty Dasha Ha MD [address] [facility] [address] [phone] 07/06/2019 Office Visit Plastic Surgery Dasha Ha MD [address] [facility] [address] [phone] FACIAL SCAR REVISION 07/14/2019 Surgery Surgery Order Schedule Name Type Priority Associated Diagnoses ONCE for 1 Occurrences starting 07/06/2019 until 07/06/2019 CASE REQUEST: FACIAL SCAR PROCEDURES Routine Blepharochalasis, REVISION unspecified laterality Brow ptosis Health Maintenance Due Date Last Done Comments [...] filedocumented in this encounter Visit Diagnoses Diagnosis Blepharochalasis, unspecified laterality - Primary Brow ptosis Unspecified ptosis of eyelid documented in this encounter Insurance Type Payer Benefit Subscriber ID Effective Phone Address Plan / Dates Group HMO AETNA AETNA [facility] [id number] 2016- Present documented as of this encounter
--- OUTSIDE RECORDS SUMMARY | 2020-02-12 11:06 | XMS REPORT | Summary of Care ---
Author Author [facility] - Health Organization [facility] - Health Address Unknown Phone Unavailable Care Team Providers Care Lawn And Tree Service Spray Supervisor Name Role Phone Messi Rodriguez PCP Reason for Visit * Reason Comments Follow-up pre op * (Routine) Referred By Contact Referred To Contact Status Reason Specialty Diagnoses / Procedures Dasha Ha MD [address] [place] [phone] Dasha Ha MD [address] [place] [address] Closed [facility] AND Diagnoses RECONSTRUCTIVE re-evaluate upper SURGERY / blephs Plastic Surgery P rocedures CONSULT/REFERRAL PLASTIC SURGERY FOLLOW-UP VISIT Encounter Details Care Team Description Date Type Department Dasha Ha MD [address] [address] Ptosis of both eyelids (Primary Dx) 07/06/2019 Office Visit [facility] Health Plastic Surgery- [address] [place] [phone] Allergies No Known Allergiesdocumented as of this [...] Overview: Added automatically from request for surgery [id number] Brow ptosis 06/23/2018 Overview: Added automatically from request for surgery [id number] Blepharochalasis, unspecified laterality 06/23/2018 Overview: Added automatically from request for surgery [id number] documented as of this encounter (statuses as [...] location and telephone provided. Both done with pick up operator [phone] # [id number] * Aldo Young MD - 07/06/2019 1:15 [...] forming the revision surgery. She returns to [facility] today for repeat evaluation. Interval history 07/06/2019: [...] Bilateral 07/01/2018 Surgeon: Dasha Ha MD; Location: [facility] OR [facility] BROWLIFT Bilateral 07/01/2018 Surgeon: Dahsa Ha MD; Location: [facility] All other past surgical history non [...] file Gets together: Not on file Attends pentecostalism service: Not on file Active member of [...] written consent with aid of an official chart snatcher. Informed consent discussed with the patient, including: [...] Description Date Type Specialty Dasha Ha MD [address] [place], [place] [address]D [address] [place], [place] [address] Blepharochalasis, unspecified laterality 07/14/2019 Hospital Ambulatory Surgical [...] Address Plan / Dates Group [facility]NA [facility] [id number] 2016- Present documented as of this encounter
--- OUTSIDE RECORDS SUMMARY | 2020-02-12 11:06 | XMS REPORT | Summary of Care ---
Author Author [facility] - Health Organization [facility] - Health Address Unknown Phone Unavailable Care Team Providers Care Work Car Operator Name Role Phone Messi Rodriguez PCP Reason for Visit * Reason Comments Appointment Encounter Details Care Team Description Date Type Department Dasha Ha MD [address] [place], [place] [address]D [address] [place] [address] Appointment 07/03/2019 Telephone [facility] Plastic Surgery[address] [place] [address] Allergies No Known Allergiesdocumented as [...] Overview: Added automatically from request for surgery [id number] Brow ptosis 06/23/2018 Overview: Added automatically from request for surgery [id number] Blepharochalasis, unspecified laterality 06/23/2018 Overview: Added automatically from request for surgery [id number] documented as of this encounter (statuses as [...] Description Date Type Specialty Dasha Ha MD [address] [place] [address] [address] [place] [address] 07/06/2019 Office Visit Plastic Surgery [...] / Dates Group HMO AETNA AETNA HMO [id number] 2016- Present documented as of this encounter
--- OUTSIDE RECORDS SUMMARY | 2020-02-12 11:06 | XMS REPORT | Summary of Care ---
Author Author [facility] - Health Organization [facility] - Health Address Unknown Phone Unavailable Care Team Providers Care Sulky Driver Name Role Phone Messi Rodriguez PCP Reason for Visit * Reason Comments Talk To Nurse Request for Auth Update Encounter Details Care Team Description Date Type Department Dasha Ha MD [address] [place], [place] [address]D [address] [place] [address] Talk To Nurse (Request for Auth Update) 07/01/2019 Telephone [facility] Plastic Surgery[address] [place] [phone] Allergies No Known Allergiesdocumented as of this encounter (statuses as of 07/01/2019) Medications End Date Status Medication Sig Dispensed [...] as of this encounter (statuses as of 07/01/2019) Active Problems Problem Noted Date Vision impairment 06/23/2018 Overview: Added automatically from request for surgery [id number] Brow ptosis 06/23/2018 Overview: Added automatically from request for surgery [id number] Blepharochalasis, unspecified laterality 06/23/2018 Overview: Added automatically from request for surgery [id number] documented as of this encounter (statuses as of 07/01/2019) Social History Date Tobacco Use Types Packs/Day [...] Description Date Type Specialty Dasha Ha MD [address] [place], [place] [address]D [address] [place], [place] [phone] 07/06/2019 Office Visit Plastic Surgery Health Maintenance [...] / Dates Group HMO AETNA AETNA HMO [id number] 2016- Present documented as of this encounter
--- OUTSIDE RECORDS SUMMARY | 2020-02-12 11:06 | XMS REPORT | Summary of Care ---
Author Author [facility] - Health Organization [facility] - Health Address Unknown Phone Unavailable Care Team Providers Care Outgoing Inspector Name Role Phone Messi Rodriguez PCP Reason for Visit * Reason Comments Other Checking Status of Ins Encounter Details Care Team Description Date Type Department [facility] Ha MD [facility] [address] [place] [address] Other (Checking Status of Ins) 06/01/2019 Telephone [facility] Plastic Surgery[address] [place] [phone] Allergies No Known Allergiesdocumented as [...] Overview: Added automatically from request for surgery [id number] Brow ptosis 06/23/2018 Overview: Added automatically from request for surgery [id number] Blepharochalasis, unspecified laterality 06/23/2018 Overview: Added automatically from request for surgery [id number] documented as of this encounter (statuses as [...] / Dates Group HMO AETNA AETNA HMO [id number] 2016- Present documented as of this encounter
--- OUTSIDE RECORDS SUMMARY | 2020-02-12 11:06 | XMS REPORT | Summary of Care ---
Author Author [facility] - Health Organization [facility] - Health Address Unknown Phone Unavailable Care Team Providers Care Test Equipment Mechanic Name Role Phone Messi Rodriguez PCP Encounter Details Care Team Description Date Type Department Doctor Unassigned, [place] [address] [place] [address] 06/08/2019 Orders Only [facility] 301 [place] [address] Allergies No Known Allergiesdocumented as of this encounter (statuses as of 06/08/2019) Medications End Date Status Medication Sig Dispensed [...] as of this encounter (statuses as of 06/08/2019) Active Problems Problem Noted Date Vision impairment 06/23/2018 Overview: Added automatically from request for surgery [id number] Brow ptosis 06/23/2018 Overview: Added automatically from request for surgery [id number] Blepharochalasis, unspecified laterality 06/23/2018 Overview: Added automatically from request for surgery [id number] documented as of this encounter (statuses as of 06/08/2019) Social History Date Tobacco Use Types Packs/Day [...] Date Type Specialty Dasha Ha MD 301 [facility] [address] [place], [place] [phone] 06/08/2019 Office Visit Plastic Surgery Health Maintenance [...] Comments Procedure Name Priority Date/Time Associated Diagnosis CONSENT/REFUSAL FOR Routine 06/08/2019 DIAGNOSIS AND TREATMENT 1:11 PM CDT documented in this encounter Results Not on filedocumented in this encounter Insurance Type Payer Benefit Subscriber ID Effective Phone Address Plan / Dates Group O AETNA AETNA O [id number] 2016- Present documented as of this encounter
--- OUTSIDE RECORDS SUMMARY | 2020-02-12 11:06 | XMS REPORT | Summary of Care ---
Author Author [facility] - Health Organization [facility] - Health Address Unknown Phone Unavailable Care Team Providers Care Talent Acquisition Partner Name Role Phone Messi Rodriguez PCP Reason for Visit * Reason Comments Follow-up re-evaluate upper blephs patient says she feel bumps * (Routine) Referred By Contact Referred To Contact Status Reason Specialty Diagnoses / Procedures Dasha Ha MD [address] [place] [phone] Dasha Ha MD [address] [place] [phone] Closed [facility] AND Diagnoses RECONSTRUCTIVE re-evaluate upper SURGERY / blephs Plastic Surgery P rocedures CONSULT/REFERRAL PLASTIC SURGERY FOLLOW-UP VISIT Encounter Details Care Team Description Date Type Department Dasha Ha MD [address] [place] [address] Blepharochalasis, unspecified laterality (Primary Dx) 06/08/2019 Office Visit [facility] Health Plastic Surgery- [facility] [address] [place] [address] [address] [place] [phone] Allergies No Known Allergiesdocumented as of this [...] Overview: Added automatically from request for surgery [id number] Brow ptosis 06/23/2018 Overview: Added automatically from request for surgery [id number] Blepharochalasis, unspecified laterality 06/23/2018 Overview: Added automatically from request for surgery [id number] documented as of this encounter (statuses as [...] Signs Reading Time Taken Comments Vital Sign 114/74 06/08/2019 2:53 PM CDT Blood Pressure 65 06/08/2019 2:53 PM CDT Pulse 36.7 C (98.1 F) 06/08/2019 2:53 PM CDT Temperature 18 06/08/2019 2:53 PM CDT Respiratory Rate 98% 06/08/2019 2:53 PM CDT Oxygen Saturation - - Inhaled Oxygen Concentration 72.2 kg (159 lb 3.2 oz) 06/08/2019 2:53 PM CDT Weight 160 cm (5' 3") 06/08/2019 2:53 PM CDT Height 28.2 06/08/2019 2:53 PM CDT Body Mass Index documented in this encounter Progress Notes * Aldo Young MD - 06/08/2019 1:45 PM CDT PLASTIC SURGERY CLINIC NOTE NAME: Palma Freeman Date of Service: 06/08/2019 15:12 CC: Revision of upper blepharoplasty and browlift. SUBJECT: Palma [...] forming the revision surgery. She returns to [facility] today for repeat evaluation. CURRENT HOSPITAL MEDICATIONS Current Outpatient Medications on File Prior to Visit Medication Sig Dispense Refill levothyroxine 50 mcg tablet Take 50 mcg by mouth. FLORASTOR 250 mg capsule TAKE 1 CAPSULE (250 MG TOTAL) BY MOUTH 2 (TWO) TIME S A DAY FOR 30 DAYS. 0 hydroCHLOROthiazide 12.5 mg capsule Take 12.5 mg by mouth daily. 0 montelukast 10 mg tablet Take 10 mg by mouth. ACETAMINOPHEN, BULK, MISC albuterol (VENTOLIN HFA) 90 mcg/actuation inhaler Inhale 2 Puffs. budesonide-formoterol (SYMBICORT) 160-4.5 mcg/actuation inhaler Inhale 2 Puf fs. loratadine 10 mg tablet Take 10 mg by mouth. phentermine 37.5 mg tablet Take 37.5 mg by mouth daily. 0 No current facility-administered medications on file prior to visit. HISTORY Past Surgical History: Procedure Laterality Date BLEPHAROPLASTY Bilateral 07/01/2018 Surgeon: Dasha Ha MD; Location: [facility] BROWLIFT Bilateral 07/01/2018 Surgeon: Dasha Ha MD; Location: [facility] OR [place] All other past surgical history non contributory [...] file Gets together: Not on file Attends buddhism service: Not on file Active member of [...] Allergies: No Known Allergies PHYSICAL EXAM BP 114/74 | Pulse 65 | Temp 36.7 C (98.1 F) | Resp 18 | Ht 5' 3" (1.6 m) | Wt 159 lb 3.2 oz (72.2 kg) | SpO2 98% | BMI 28.20 kg/m General: Alert and oriented, in no [...] browlift on 07/01/2018 who has persistent asymmetry. Patient would benefit from revision surgery. We will submit for insurance pre-determination today usi ng the following codes: 71668-68 (excision benign lesion, skin of eyelid) and 12 052 x 2 (complex closure). We will reevaluate patient after insurance approval. -RTC s/p insurance pre-determination approval -Photos taken by Hector Young MD 06/08/2019 8:05 PM * Yara Mathews MA - 06/08/2019 1:45 PM CDT Palma Freeman is a 58 year old female follow up to reevaluate blephs she is yancy rt and accompanied by her daughter meds and allergies were reviewed fall risk jackson icide risk travel exposure were assessed documented in this encounter Plan of Treatment Health [...] Diagnoses Diagnosis Blepharochalasis, unspecified laterality - Primary documented in this encounter Insurance Type Payer Benefit Subscriber ID Effective Phone Address Plan / Dates Group HMO AETNA AETNA O [id number] 2016- Present documented as of this encounter
--- OUTSIDE RECORDS SUMMARY | 2020-02-12 11:06 | XMS REPORT | Summary of Care ---
Author Author [facility] - Health Organization [facility] - Health Address Unknown Phone Unavailable Care Team Providers Care Soil Fertility Extension Specialist Name Role Phone Messi Rodriguez PCP Reason for Visit * Reason Comments Appointment Encounter Details Care Team Description Date Type Department Dasha Ha MD [address] [place], [place] [address]D [address] [place] [address] Appointment 07/03/2019 Telephone [facility] Plastic Surgery[address] [place] [address] Allergies No Known Allergiesdocumented as [...] Overview: Added automatically from request for surgery [id number] Brow ptosis 06/23/2018 Overview: Added automatically from request for surgery [id number] Blepharochalasis, unspecified laterality 06/23/2018 Overview: Added automatically from request for surgery [id number] documented as of this encounter (statuses as [...] Description Date Type Specialty Dasha Ha MD [address] [place] [address] [address] [place] [address] 07/06/2019 Office Visit Plastic Surgery [...] / Dates Group HMO AETNA AETNA HMO [id number] 2016- Present documented as of this encounter
--- OUTSIDE RECORDS SUMMARY | 2020-02-12 11:06 | XMS REPORT | Summary of Care ---
Author Author [facility] - Health Organization [facility] - Health Address Unknown Phone Unavailable Care Team Providers Care Surgical Appliances Salesperson Name Role Phone Messi Rodriguez PCP Reason for Visit * Auth/Cert Referred By Contact Referred To Contact Status Reason Specialty Diagnoses / Procedures [facility] [address] [place] [address] Ambulatory Diagnoses Surgical Blepharochalasis, unspecified laterality [H02.30] Brow ptosis [H57.819] P rocedures [facility] CODING HELP FACIAL SCAR REVISION Encounter Details Care Team Description Date Type Department Wilmer Sullivan MD [address] [place] [phone] 07/14/[address] [facility] OR Department [address] [place] [address] Allergies No Known Allergiesdocumented as of this encounter (statuses as of 07/14/2019) Medications End Date Status Medication Sig Dispensed Refills Start Date Suspended budesonide-formoterol Inhale 2 0 (SYMBICORT) 160-4.5 Puffs. 8 mcg/actuation inhaler Suspended albuterol (VENTOLIN HFA) Inhale 2 0 90 mcg/actuation inhaler Puffs. 8 Suspended montelukast 10 mg tablet Take 10 mg by 0 mouth. 8 Suspended loratadine 10 mg tablet Take 10 mg by 0 mouth. Suspended hydroCHLOROthiazide 12.5 Take 12.5 mg 0 mg capsule by mouth 8 daily. Suspended phentermine 37.5 mg Take 37.5 mg 0 tablet by mouth 8 daily. Suspended FLORASTOR 250 mg capsule TAKE 1 0 CAPSULE (250 8 MG TOTAL) BY MOUTH 2 (TWO) TIMES A DAY FOR 30 DAYS. Suspended levothyroxine 50 mcg Take 50 mcg 0 tablet by mouth. 9 Suspended tobramycin-dexamethasone Place 1 Drop 2.5 mL 1 (TOBRADEX) 0.3-0.1 % in both eyes 9 ophthalmic suspension 4 (four) dropsIndications: Ptosis times daily. of both eyelids 07/20/2019 Suspended acetaminophen 500 mg Take 2 84 tablet 0 tabletIndications: Ptosis tablets by 9 of both eyelids mouth every 8 (eight) hours for 14 days. 07/20/2019 Suspended celecoxib (CELEBREX) 200 Take 1 28 capsule 0 mg capsuleIndications: capsule by 9 Ptosis of both eyelids mouth 2 (two) times daily with meals for 14 days. documented as of this encounter (statuses as of 07/14/2019) Active Problems Problem Noted Date Vision impairment 06/23/2018 Overview: Added automatically from request for surgery [id number] Brow ptosis 06/23/2018 Overview: Added automatically from request for surgery [id number] Blepharochalasis, unspecified laterality 06/23/2018 Overview: Added automatically from request for surgery [id number] documented as of this encounter (statuses as [...] Treatment Care Team Description Date Type Specialty Nurse, [facility] Plastic Surg 07/16/2019 Nurse Visit Plastic Surgery Health Maintenance Due Date [...] Results Not on filedocumented in this encounter Administered Medications Action Date Dose Rate Site Medication Order MAR Action 07/14/2019 10:13 AM CDT 25 mcg FENTanyl PF (SUBLIMAZE (PF)) injection Given ONCE INTRA PROCEDURE, Starting Fri07/14/19 at 0925, Until Fri07/14/19 at 1045, Routine, Intra-op 25 mcg Given 07/14/2019 10:05 AM CDT 12.5 mcg Given 07/14/2019 9:35 AM CDT 07/14/2019 10:40 AM CDT lactated ringers IV infusion New Bag CONTINUOUS PRN, Starting Fri07/14/19 at 0915, Until Fri07/14/19 at 1045, Routine, Intra-op New Bag 07/14/2019 9:15 AM CDT 07/14/2019 9:20 AM CDT 2 mg midazolam (VERSED) injection Given ONCE INTRA PROCEDURE, Starting Fri07/14/19 at 0920, Until Fri07/14/19 at 1045, Routine, Intra-op 07/14/2019 9:26 AM CDT 20 mg propofol injection Given ONCE INTRA PROCEDURE, Starting Fri07/14/19 at 0925, Until Fri07/14/19 at 1045, Routine, Intra-op 40 mg Given 07/14/2019 9:25 AM CDT 07/14/2019 10:25 AM CDT 20 mcg/kg/min 8.65 mL/hr propofol injection Rate Change CONTINUOUS PRN, Starting Fri07/14/19 at 0931, Until Fri07/14/19 at 1045, Routine, Intra-op 30 mcg/kg/min 12.98 mL/hr Rate Change 07/14/2019 10:20 AM CDT 40 mcg/kg/min 17.3 mL/hr Rate Change 07/14/2019 10:10 AM CDT documented in this encounter Insurance Type Payer Benefit Subscriber ID Effective Phone Address Plan / Dates Group O AETNA AENA O [id number] 2016- Present documented as of this encounter
--- OUTSIDE RECORDS SUMMARY | 2020-02-12 11:06 | XMS REPORT | Summary of Care ---
Author Author [facility] - Health Organization [facility] - Health Address Unknown Phone Unavailable Care Team Providers Care Hat Former Name Role Phone Messi Rodriguez PCP Reason for Visit * Reason Comments Notification Pre-Determination Approved Encounter Details Care Team Description Date Type Department Dasha Ha MD [address] [facility] [address] [place] [address] Notification (Pre-Determination Approved) 07/01/2019 Telephone [facility] Plastic Surgery[address] [place] [phone] Allergies No Known Allergiesdocumented as of this encounter (statuses as of 07/02/2019) Medications End Date Status Medication Sig Dispensed [...] as of this encounter (statuses as of 07/02/2019) Active Problems Problem Noted Date Vision impairment 06/23/2018 Overview: Added automatically from request for surgery [id number] Brow ptosis 06/23/2018 Overview: Added automatically from request for surgery [id number] Blepharochalasis, unspecified laterality 06/23/2018 Overview: Added automatically from request for surgery [id number] documented as of this encounter (statuses as of 07/02/2019) Social History Date Tobacco Use Types Packs/Day [...] Date Type Specialty Dasha Ha MD [address] [facility] [address] [place], [place] [phone] 07/06/2019 Office Visit Plastic Surgery Health Maintenance [...] / Dates Group HMO AETNA AETNA HMO [id number] 2016- Present documented as of this encounter
--- OUTSIDE RECORDS SUMMARY | 2020-02-12 11:06 | XMS REPORT | Summary of Care ---
Author Author [facility] - Health Organization [facility] - Health Address Unknown Phone Unavailable Care Team Providers Care Milk Receiver Name Role Phone Messi Rodriguez PCP Reason for Referral * (Routine) Referred By Contact Referred To Contact Status Reason Specialty Diagnoses / Procedures Dasha Ha MD [address] [address] Closed PS-PLASTIC Diagnoses SURGERY / Brow ptosis Plastic Surgery P rocedures Discharge Follow-Up: Specialty Service PS-PLASTIC SURGERY; Other - See Comment Reason for Visit * Auth/Cert Referred By Contact Referred To Contact Status Reason Specialty Diagnoses / Procedures [facility] [address] [place] [address] Ambulatory Diagnoses Surgical Blepharochalasis, 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 Encounter Post Anesthesia Care Unit [address] [place] [address] Allergies No Known Allergiesdocumented as [...] times daily with meals for 14 days. Active bacitracin 500 unit/gram Place in 3.5 g 1 ophthalmic both eyes 3 9 ointmentIndications: Brow (three) times ptosis daily. documented as of this encounter (statuses as of 07/14/2019) Active Problems Problem Noted Date Vision impairment 06/23/2018 Overview: Added automatically from request for surgery [id number] Brow ptosis 06/23/2018 Overview: Added automatically from request for surgery [id number] Blepharochalasis, unspecified laterality 06/23/2018 Overview: Added automatically from request for surgery [id number] documented as of this encounter (statuses as [...] Signs Reading Time Taken Comments Vital Sign 119/69 07/14/2019 11:15 AM CDT Blood Pressure 45 07/14/2019 11:15 AM CDT Pulse 36.3 C (97.3 F) 07/14/2019 10:48 AM CDT Temperature 17 07/14/2019 11:15 AM CDT Respiratory Rate 97% 07/14/2019 11:15 AM CDT Oxygen Saturation - - Inhaled Oxygen Concentration 72.1 kg (158 lb 15.2 oz) 07/14/2019 7:44 AM CDT Weight 157.5 cm (5' 2") 07/14/2019 7:44 AM CDT Height 29.07 07/14/2019 7:44 AM CDT Body Mass Index documented in this encounter Discharge Summaries * Aldo Young MD - 07/14/2019 10:28 AM CDT DISCHARGE SUMMARY Date of Service: 07/14/2019 DATE OF ADMISSION: 07/14/2019 DATE OF DISCHARGE: 07/14/2019 ATTENDING SURGEON: Dr. Ha PCP: Messi Rodriguez PRIMARY DIAGNOSIS: Brow ptosis. FINAL DIAGNOSIS: Brow ptosis. SECONDARY DIAGNOSIS: (any diagnosis that, required clinical evaluation, therape utic treatment, diagnostic procedures, or additional nursing care/monitoring): ICD-10-CM ICD-9-CM 1. Brow ptosis H57.819 374.30 PRINCIPAL PROCEDURE: Bilateral upper blepharoplasty scar revision. ADDITIONAL PROCEDURES: None. SIGNIFICANT LAB/X-RAYS: None. HOSPITAL COURSE: Patient was admitted through the DSU for above procedure. Pat ient underwent the procedure without complication. Post-operative course unrema rkable. Patient is being discharged to home with instruction to follow-up on Fri day with plastic surgery nursing. CONDITION: Good. DIET: Regular. ACTIVITY: No strenuous lifting or heavy lifting. DISCHARGE MEDICATIONS: Pal[facility] Freeman Home Medication Instructions CINTHYA:[id number] Printed on:07/14/19 1029 Medication Information acetaminophen 500 mg tablet Take 2 tablets by mouth every 8 (eight) hours for 14 days. albuterol (VENTOLIN HFA) 90 mcg/actuation inhaler Inhale 2 Puffs. bacitracin 500 unit/gram ophthalmic ointment Place in both eyes 3 (three) times daily. budesonide-formoterol (SYMBICORT) 160-4.5 mcg/actuation inhaler Inhale 2 Puffs. celecoxib (CELEBREX) 200 mg capsule Take 1 capsule by mouth 2 (two) times daily with meals for 14 days. FLORASTOR 250 mg capsule TAKE 1 CAPSULE (250 MG TOTAL) BY MOUTH 2 (TWO) TIMES A DAY FOR 30 DAYS. hydroCHLOROthiazide 12.5 mg capsule Take 12.5 mg by mouth daily. levothyroxine 50 mcg tablet Take 50 mcg by mouth. loratadine 10 mg tablet Take 10 mg by mouth. montelukast 10 mg tablet Take 10 mg by mouth. phentermine 37.5 mg tablet Take 37.5 mg by mouth daily. tobramycin-dexamethasone (TOBRADEX) 0.3-0.1 % ophthalmic suspension drops Place 1 Drop in both eyes 4 (four) times daily. WOUND CARE: Tobradex ophthalmic suspension drops in both eyes 4 times per day, ophthalmic bacitracin to incisions three times per day. DISCHARGE: Home. FOLLOW-UP APPOINTMENT: Friday with plastic surgery nursing. Discharge Orders Regular Diet; Texture: Regular. Texture Regular. Diabetic: No Discharge Condition - Discharge Condition: GOOD Discharge Activity Discharge Activity: No Heavy Lifting or Strenuous Activity Discharge Follow-Up: Specialty Service PS-PLASTIC SURGERY; Other - See Comment Order Comments: Follow-up Friday with plastic surgery nursing. Specialty: PS-PLASTIC SURGERY [39] Patient's Preferred Location: [place] Discharge Disposition: HOME, ([facility]) When (Patients with risk for unplanned readmission score over 16 or those noted as Hospital Dependent should follow up within 7 days with PCP or primary DX spec ialist): Other - See Comment VTE Propylaxis- Was ordered during hospitalization Patient was given discharge instructions. Aldo Young MD 07/14/2019 10:31 AM documented in this encounter Plan of Treatment Care Team Description Date Type Specialty Nurse, [facility] Plastic Surg 07/16/2019 Nurse Visit Plastic Surgery [...] Comments Procedure Name Priority Date/Time Associated Diagnosis DISCLOSURE AND CONSENT, Routine 07/06/2019 MEDICAL AND SURGICAL 12:01 AM CDT PROCEDURES documented in this encounter Results Not on filedocumented in this encounter Visit Diagnoses Diagnosis Brow ptosis - Primary Unspecified ptosis of eyelid documented in this encounter Administered Medications Action Date Dose Rate Site Medication Order MAR Action bacitracin ophthalmic ointment PRN, Starting Fri07/14/19 at 1042, Until Discontinued, Routine, Intra-op 07/14/2019 10:45 AM CDT 0.05 mL Both Eyes bacitracin-polymyxin b/nystatin/zinc Given oxide ointment 1:1:1 (COMPOUNDED) PRN, Starting Fri07/14/19 at 1045, Until Discontinued, Routine, Intra-op 07/14/2019 10:42 AM CDT 30 mL balanced salt soln no.2 irrig. (BSS) Given ophthalmic solution PRN, Starting Fri07/14/19 at 1042, Until Discontinued, Routine, Intra-op 07/14/2019 9:42 AM CDT 5 mL See Comment bupivacaine (preserv free) (SENSORCAINE Given MPF) 0.25 % (2.5 mg/mL) 2.5 mL, lidocaine-epinephrine (XYLOCAINE W/EPINEPHRINE) 1 %-1:200,000 2.5 mL PRN, Starting Fri07/14/19 at 0953, Intra-op 07/14/2019 9:53 AM CDT 1 Bottle See Comment gentian nat 1 % solution Given PRN, Starting Fri07/14/19 at 0953, Until Discontinued, Routine, Intra-op HYDROmorphone (DILAUDID) injection 0.2 mg 0.2 mg, Slow IV Push, Q5MIN PRN, 10 doses, Starting Fri07/14/19 at 1103, Until Discontinued, Routine, Pain (scale 7-10), PACU, Use approved by (Faculty): PACU USE -ANESTHESIA SERVICE-HYDROMORPHONE INJECTIONS lactated ringers IV infusion 1,000 mL at 75 mL/hr, 1,000 mL, IV Infusion, CONTINUOUS, Starting Fri07/14/19 at 1115, Until Discontinued, Routine, PACU 07/14/2019 9:44 AM CDT 600 Drops Face povidone-iodine (BETADINE) 5 % Given ophthalmic drops PRN, Starting Fri07/14/19 at 0944, Until Discontinued, Routine, Intra-op 07/14/2019 9:43 AM CDT 0.5 Inches See Comment white petrolatum-mineral oil (REFRESH Given LACRI-LUBE) ophthalmic ointment PRN, Starting Fri07/14/19 at 0943, Until Discontinued, Routine, Intra-op Action Date Dose Rate Site Medication Order MAR Action 07/14/2019 7:58 AM CDT 1,000 mg acetaminophen (TYLENOL) tablet 1,000 mg Given 1,000 mg, Oral, ONCE, 1 dose, Fri07/14/19 at 0745, Routine, DSU Pre-op 07/14/2019 7:58 AM CDT 200 mg celecoxib (CELEBREX) capsule 200 mg Given 200 mg, Oral, ONCE, 1 dose, Fri07/14/19 at 0745, Routine, DSU Pre-op 07/14/2019 7:58 AM CDT 1.5 mg scopolamine transdermal (TRANSDERM-SCOP) Given patch 1.5 mg 1.5 mg, Topical, Administer over 72 Hours, ONCE, 1 dose, Fri07/14/19 at 0745, Routine, DSU Pre-op documented in this encounter Insurance Type Payer Benefit Subscriber ID Effective Phone Address Plan / Dates Group O [facility] [id number] 2016- Present documented as of this encounter
--- OUTSIDE RECORDS SUMMARY | 2020-02-12 11:06 | XMS REPORT | Summary of Care ---
Author Author [facility] - Health Organization [facility] - Health Address Unknown Phone Unavailable Care Team Providers Care Specialty Development Consultant Name Role Phone Messi Rodriguez PCP Reason for Visit * Reason Comments Other Checking Status of Ins Encounter Details Care Team Description Date Type Department Dasha Ha MD [address] [facility] [address] [place] [address] Other (Checking Status of Ins) 06/01/2019 Telephone [facility] Plastic Surgery[address] [place] [address] Allergies No Known Allergiesdocumented as [...] Overview: Added automatically from request for surgery [id number] Brow ptosis 06/23/2018 Overview: Added automatically from request for surgery [id number] Blepharochalasis, unspecified laterality 06/23/2018 Overview: Added automatically from request for surgery [id number] documented as of this encounter (statuses as [...] / Dates Group HMO AETNA AETNA HMO [id number] 2016- Present documented as of this encounter
--- OUTSIDE RECORDS SUMMARY | 2020-02-12 11:06 | XMS REPORT | Summary of Care ---
Author Author [facility] - Health Organization [facility] - Health Address Unknown Phone Unavailable Care Team Providers Care Commis Chef Name Role Phone Messi Rodriguez PCP Encounter Details Care Team Description Date Type Department Doctor Unassigned, [place] [address] [place] [address] 07/01/2019 Orders Only [address] [address] Allergies No Known Allergiesdocumented as of this [...] Overview: Added automatically from request for surgery [id number] Brow ptosis 06/23/2018 Overview: Added automatically from request for surgery [id number] Blepharochalasis, unspecified laterality 06/23/2018 Overview: Added automatically from request for surgery [id number] documented as of this encounter (statuses as [...] Date Type Specialty Dasha Ha MD [address] [place], [place] [address]D [address] [place], [place] [address] 07/06/2019 Office Visit Plastic Surgery Health Maintenance [...] Comments Procedure Name Priority Date/Time Associated Diagnosis INSURANCE CORRESPONDENCE Routine 07/01/2019 12:01 AM CDT documented in this encounter Results Not on filedocumented in this encounter Insurance Type Payer Benefit Subscriber ID Effective Phone Address Plan / Dates Group HMO AETNA AETNA HMO [id number] 2016- Present documented as of this encounter
--- OUTSIDE RECORDS SUMMARY | 2020-02-12 11:06 | XMS REPORT | Summary of Care ---
Author Author [facility] - Health Organization [facility] - Health Address Unknown Phone Unavailable Care Team Providers Care Claim Trainee Name Role Phone Messi Rodriguez PCP Reason for Visit * Reason Comments Follow-up pre op * (Routine) Referred By Contact Referred To Contact Status Reason Specialty Diagnoses / Procedures Dasha Ha MD [address] [place] [address] [address] Dasha Ha MD [address] [place] [address] [address] Closed [facility] AND Diagnoses RECONSTRUCTIVE re-evaluate upper SURGERY / blephs Plastic Surgery P rocedures CONSULT/REFERRAL PLASTIC SURGERY FOLLOW-UP VISIT Encounter Details Care Team Description Date Type Department Dasha Ha MD [address] [place] [address] Ptosis of both eyelids (Primary Dx); Scar 07/06/2019 Office Visit [facility] Health Plastic Surgery- [address] [place] [phone] Allergies No Known Allergiesdocumented as of this [...] Overview: Added automatically from request for surgery [id number] Brow ptosis 06/23/2018 Overview: Added automatically from request for surgery [id number] Blepharochalasis, unspecified laterality 06/23/2018 Overview: Added automatically from request for surgery [id number] documented as of this encounter (statuses as [...] documented in this encounter Progress Notes * Dasha Ha MD - 07/06/2019 1:15 PM CDT After discussion with Dr. Young, I examined this patient. She still has signific ant difficulty with the bilateral standing cone deformities status post her bila teral upper blepharoplasties. She wishes to proceed with scar revision of these as previously discussed and has been notified by her insurance company that she has been Jesus to predetermination. We discussed the extension of the scars, med ications that I would prescribed after surgery and that I would not use any lipo somal bupivacaine. We discussed activity limitation, position at rest, medicatio ns that she needs to avoid perioperatively. All questions were answered, case sc heduled, care coordinated and consent obtained. I agree with resident's note as written. * Shawanda De Souza RN - 07/06/2019 1:15 PM CDT Consent for revision of blepharoplasty, bilateral witnessed by Meche De Souza RN. Surgery scheduled @ [facility] on 07/14/19. Verbal and printed instructions g iven. List of medications to avoid prior to procedure explained. Verbalized unde rstanding. Facility location and telephone provided. Both done with production planner [employer] # [id number] * Aldo Young MD - 07/06/2019 1:15 [...] forming the revision surgery. She returns to [facility] today for repeat evaluation. Interval history [...] Bilateral 07/01/2018 Surgeon: Dasha Ha MD; [facility] [place] Bilateral 07/01/2018 Surgeon: Dasha Ha MD; Location: [facility] OR [facility] All other past surgical history non contributory [...] file Gets together: Not on file Attends worship service: Not on file Active member of [...] written consent with aid of an official splunk developer. Informed consent discussed with the patient, including: [...] Description Date Type Specialty Dasha Ha MD [address] [place], [place] [address]D [address] [place], [place] [address] Blepharochalasis, unspecified laterality 07/14/2019 Hospital Ambulatory Surgical [...] eyelids - Primary Unspecified ptosis of eyelid Scar Scar condition and fibrosis of skin documented in this encounter Insurance Type Payer Benefit Subscriber ID Effective Phone Address Plan / Dates Group [facility] [id number] 2016- Present documented as of this encounter
--- OUTSIDE RECORDS SUMMARY | 2020-02-12 11:06 | XMS REPORT | Summary of Care ---
Author Author [facility] - Health Organization [facility] - Health Address Unknown Phone Unavailable Care Team Providers Care Meat Counter Clerk Name Role Phone Messi Rodriguez PCP Reason for Visit * Reason Comments Other Checking Status of Ins Encounter Details Care Team Description Date Type Department Dasha Ha MD [address] [facility] [address] [place] [address] Other (Checking Status of Ins) 06/01/2019 Telephone [facility] Plastic Surgery[address] [place] [phone] Allergies No Known Allergiesdocumented as [...] Overview: Added automatically from request for surgery [id number] Brow ptosis 06/23/2018 Overview: Added automatically from request for surgery [id number] Blepharochalasis, unspecified laterality 06/23/2018 Overview: Added automatically from request for surgery [id number] documented as of this encounter (statuses as [...] Date Type Specialty Dasha Ha MD [address] [facility] [address] [place], [place] [id number] 06/08/2019 Office Visit Plastic Surgery Health Maintenance [...] / Dates Group HMO AETNA AETNA HMO [id number] 2016- Present documented as of this encounter
--- OUTSIDE RECORDS SUMMARY | 2020-02-12 11:06 | XMS REPORT | Summary of Care ---
Author Author [facility] - Health Organization [facility] - Health Address Unknown Phone Unavailable Care Team Providers Care Medical Van Driver Name Role Phone Messi Rodriguez PCP Reason for Visit * Reason Comments Follow-up re-evaluate upper blephs patient says she feel bumps * (Routine) Referred By Contact Referred To Contact Status Reason Specialty Diagnoses / Procedures Dasha Ha MD [address] [place] [address] Dasha Ha MD [address] [place] [address] Closed [facility] AND Diagnoses RECONSTRUCTIVE re-evaluate upper SURGERY / blephs Plastic Surgery P rocedures CONSULT/REFERRAL PLASTIC SURGERY FOLLOW-UP VISIT Encounter Details Care Team Description Date Type Department Dasha Ha MD [address] [place] [address] Blepharochalasis, unspecified laterality (Primary Dx); Scar condition and fibrosis of skin 06/08/2019 Office Visit [facility] Health Plastic Surgery- [address] [place] [phone] Allergies No Known Allergiesdocumented as of this [...] Overview: Added automatically from request for surgery [id number] Brow ptosis 06/23/2018 Overview: Added automatically from request for surgery [id number] Blepharochalasis, unspecified laterality 06/23/2018 Overview: Added automatically from request for surgery [id number] documented as of this encounter (statuses as [...] Progress Notes * Dasha Ha MD - 06/08/2019 1:45 PM CDT After discussion with Dr. Young, I examined this patient. She has persistent exc ess even after all of the edema has resolved. The skin has not yet tightened at the bilateral lateral extensions of the blepharoplasty incisions and the most in ferior portion of the 4 head left with resultant standing cone deformities. The patient would be benefited by removal of these which could be done under general anesthetic due to the approximately 10 cm surface area to be removed. The pat ient is agreeable to this and understands additional scars and extension of curr ents scars would result. A request for predetermination will be sent to her [place] along with photographs. I agree with resident's note as written. * Aldo Young MD - 06/08/2019 1:45 [...] forming the revision surgery. She returns to [facility] today for repeat evaluation. CURRENT HOSPITAL MEDICATIONS [...] Bilateral 07/01/2018 Surgeon: Dasha Ha MD; Location: [facility] [place] Bilateral 07/01/2018 Surgeon: Dasha Ha MD; Location: [facility] All other past surgical history non contributory [...] file Gets together: Not on file Attends mosque service: Not on file Active member of [...] We will submit for insurance pre-determination today i ng the following codes: 21387-53 (excision benign lesion, skin of eyelid) and [...] Diagnoses Diagnosis Blepharochalasis, unspecified laterality - Primary Scar condition and fibrosis of skin documented in this encounter Insurance Type Payer Benefit Subscriber ID Effective Phone Address Plan / Dates Group [facility] [id number] 2016- Present documented as of this encounter
[2020-02-12] MEDS ORDERED: MORPHINE SULFATE INJ 4 MG/ML INJ 1ML IV SCH (11:07)
[2020-02-12] MEDS ORDERED: SODIUM CHLORIDE 0.9% 1000ML 1,000 ML IV STA (11:07)
[2020-02-12] MEDS ORDERED: ONDANSETRON HCL INJ 2MG/ML 2ML 2 MG/ML VIAL IV NR (11:15)
[2020-02-12] MEDS ORDERED: DIATRIZOATE MEGL/DIATRIZOA SOD 30 ML BTL PO ONE (11:20)
[2020-02-12 11:23] LABS: BASOPHILS # (AUTO) 0.1 (0.0-0.1); BASOPHILS % 0.9 % (0.0-1.0); EOSINOPHILS # (AUTO) 0.2 (0.0-0.4); EOSINOPHILS % 2.5 % (0.0-6.0); HEMATOCRIT 43.5 % (34.2-44.1); HEMOGLOBIN 13.8 g/dL (12.0-16.0); LYMPHOCYTES # (AUTO) 1.8 (1.0-3.2); LYMPHOCYTES % 24.1 % (18.0-39.1); MEAN CORPUSCULAR HEMOGLOBIN 28.4 pg (28-32); MEAN CORPUSCULAR HGB CONC 31.7 g/dL (31-35); MEAN CORPUSCULAR VOLUME 89.5 fL (81-99); MONOCYTES # (AUTO) 0.5 (0.2-0.8); NEUTROPHILS # (AUTO) 4.9 (2.1-6.9); NEUTROPHILS % 65.2 % (38.7-80.0); PLATELET COUNT 348 x10e3/uL (140-360); RED BLOOD COUNT 4.86 x10e6/uL (3.6-5.1); RED CELL DISTRIBUTION WIDTH 14.2 % (11.7-14.4)
[2020-02-12 11:31] LABS: COLOR,URINE YELLOW (YELLOW)
[2020-02-12 11:33] LABS: CLARITY,URINE CLEAR (CLEAR)
[2020-02-12 11:34] LABS: KETONES,URINE NEGATIVE (NEGATIVE); LEUKOCYTE ESTERASE ,URINE SMALL (NEGATIVE); NITRITE,URINE NEGATIVE (NEGATIVE); PROTEIN,URINE DIPSTICK NEGATIVE (NEGATIVE)
[2020-02-12 11:35] LABS: BILIRUBIN,URINE NEGATIVE (NEGATIVE); URINE UROBILINOGEN 0.2 mg/dL (0.2 - 1)
[2020-02-12] MEDS ORDERED: METRONIDAZOLE500 MG PO (11:42)
[2020-02-12 11:44] LABS: ALANINE AMINOTRANSFERASE 17 IU/L (0-55); ALBUMIN 4.1 g/dL (3.5-5.0); ALBUMIN/GLOBULIN RATIO 1.3 (0.8-2.0); ALKALINE PHOSPHATASE 88 IU/L (40-150); ANION GAP 9.2 mmol/L (8-16); BLOOD UREA NITROGEN 17 mg/dL (7-26); BUN/CREATININE RATIO 22 (6-25); CALCIUM 9.6 mg/dL (8.4-10.2); CARBON DIOXIDE 28 mmol/L (22-29); CHLORIDE 106 mmol/L (98-107); CREATININE, SERUM 0.76 mg/dL (0.57-1.11); EST GLOMERULAR FILTRATION RATE > 60 ML/MIN (60-); GLUCOSE 94 mg/dL (74-118); LIPASE 35 U/L (8-78); POTASSIUM 4.2 mmol/L (3.5-5.1); SODIUM 139 mmol/L (136-145)
[2020-02-12 11:53] LABS: BACTERIA,URINE RARE /HPF; EPITHELIAL CELLS,URINE FEW /LPF; RBC,URINE 0-5 /HPF (0-5)
[2020-02-12] MEDS ORDERED: SODIUM CHLORIDE 0.9% 50ML 50 ML ONE (12:33)
[2020-02-12] MEDS ORDERED: IOPAMIDOL 370 MG/ML 200 ML INFUS..BTL INJ ONE (12:34)
[2020-02-12] MEDS ORDERED: MORPHINE SULFATE INJ 4 MG/ML INJ 1ML IV STA (12:54)
[2020-02-12] MEDS ORDERED: ONDANSETRON HCL INJ 2MG/ML 2ML 2 MG/ML VIAL IV STA (12:54)
--- NOTE | 2020-02-12 13:04 | Diagnostic Imaging Report ---
EXAM: CT Abdomen and Pelvis WITH contrast INDICATION: LLQ pain, h/o diverticulitis COMPARISON: Report from CT abdomen/pelvis 01/07/16, although the images are not available for review. TECHNIQUE: Abdomen and pelvis were scanned utilizing a multidetector helical scanner from the lung base to the pubic symphysis after administration of IV contrast. Coronal and sagittal reformations were obtained. Routine protocol was performed. Scan was performed when during portal venous phase. IV CONTRAST: 100 mL of Isovue-370 ORAL CONTRAST: Gastrografin COMPLICATIONS: None RADIATION DOSE: Total DLP: 440.8 mGy*cm Estimated effective dose: (DLP x 0.015 x size factor) mSv CTDIvol has been reviewed. It is below the limits set by the Radiation Protocol Committee (RPC). FINDINGS: LINES and TUBES: None. LOWER THORAX: Mild bibasilar atelectasis. HEPATOBILIARY: No focal hepatic lesions. No biliary ductal dilation. GALLBLADDER: No radio-opaque stones or sludge. No wall thickening. SPLEEN: No splenomegaly. PANCREAS: No focal masses or ductal dilatation. ADRENALS: No adrenal nodules KIDNEYS/URETERS: Kidneys enhance symmetrically. No hydronephrosis. No cystic or solid mass lesions. No stones. GI TRACT: No evidence of bowel obstruction. Sigmoid colonic diverticulosis with mild wall thickening and surrounding inflammatory changes. Minimally prominent appendix, measuring up to 8 mm without evidence of surrounding inflammatory changes to suggest appendicitis. PELVIC ORGANS/BLADDER: Unremarkable. LYMPH NODES: No lymphadenopathy. VESSELS: Unremarkable. PERITONEUM / RETROPERITONEUM: No free air or free fluid. BONES: Unremarkable. SOFT TISSUES: Small fat-containing umbilical hernia. IMPRESSION: Findings of acute mild sigmoid colonic diverticulitis. No evidence of gross perforation or drainable fluid collection. Signed by: Dr. Martínez Rios MD on 02/12/2020 1:01 PM
== END 2020-02-12 13:49 | disposition home or self-care (01) ==
LOC: ER 11:02
DX: R10.32 Left lower quadrant pain (principal); K57.12 Diverticulitis of small intestine without perforation or abscess without bleeding
CPT/HCPCS: 36415; 74177; 80053; 81001; 83690; 85025; 99284; J2270; J2405; J7030; Q9967